=== PATIENT | male | born 1975 | race Caucasian/White ===

== ENCOUNTER 2020-02-24 13:28 | Outpatient (REF) | payer BC, SELFPAY | END 2020-02-24 13:29 | disposition home or self-care (01) | LOC: HO.LNP 13:28 | PROVIDERS: Visit Provider Hospitalist | DX: Z20.828 Contact with and (suspected) exposure to other viral communicable diseases (principal) | CPT/HCPCS: 87635 ==

== ENCOUNTER 2020-03-12 15:08 | Outpatient (REF) | payer OTHER, SELFPAY | END 2020-03-12 15:09 | disposition home or self-care (01) | LOC: HO.HMGCLDS 15:08 | PROVIDERS: PCP Nurse Practitioner Family; Visit Provider Internal Medicine | DX: Z20.828 Contact with and (suspected) exposure to other viral communicable diseases (principal) | CPT/HCPCS: 87635 ==

== ENCOUNTER 2021-03-21 08:38 | Outpatient (REF) | payer OTHER, SELFPAY ==
--- NOTE | ~2021-03-21 | MM_ITS ---
EXAMINATION: BONE DENSITOMETRY CLINICAL INDICATION: Unspecified asthma, uncomplicated. Male, age 46. COMPARISON: This is the patient's baseline examination. TECHNIQUE: Using a [employer] DXA System (software version: 13.1) manufactured by [employer], dual-energy x-ray absorptiometry was performed of the lumbar spine and left hip. The images are of good technical quality. Based on ISCD (International Society for Clinical Densitometry) standards of reporting, Z-scores instead of T-scores are reported in this male patient younger than age 50. Summary results are attached. FINDINGS: AP SPINE L1-L4: BMD 1.217 g/cm2, T-score 0.0, Z-score 0.2, Z-score within expected range for age. LEFT FEMUR, NECK: BMD 1.077 g/cm2, T-score 0.1, Z-score 0.7, Z-score within expected range for age. LEFT FEMUR, TOTAL: BMD 1.204 g/cm2, T-score 0.7, Z-score 1.1, Z-score within expected range for age. IDENTIFIED RISK FACTORS: Glucocorticoids (chronic). HISTORY OF FRACTURE: None listed. MEDICATIONS: Calcium supplements or multivitamin, vitamin D. MM/XR DEXA axial skeleton IMPRESSION: 1. DIAGNOSIS: Based on the lowest Z-score value of 0.2 in the lumbar spine, the patient's bone density is within the expected range for age. 2. 10-YEAR FRACTURE RISK PREDICTION, FRAX: Major osteoporotic fracture (clinical spine, forearm, hip or shoulder) 2.1%. Hip fracture 0.1%. 3. Treatment Recommendations: NOF guidelines recommend consideration for treatment in postmenopausal women and men age 50 and older presenting with the following: -A hip or vertebral (clinical or morphometric) fracture. -T-score less than or equal to -2.5 at the femoral neck or spine after appropriate evaluation to exclude secondary causes. -Low bone mass at the hip or spine and a 10-year fracture probability by FRAX of greater than or equal to 3% for hip fracture or greater than or equal to 20% for major osteoporotic fracture based on the [place] adapted WHO algorithm. 4. Other Recommendations: All treatment decisions require clinical judgment and consideration of individual patient factors, including patient preferences, comorbidities, previous drug use, risk factors not captured in the FRAX model (e.g. frailty, falls, vitamin D deficiency, increased bone turnover, interval significant decline in bone density) and possible under or overestimation of fracture risk by FRAX. FUTURE SCAN RECOMMENDATION: People with diagnosed cases of osteoporosis or at high risk for fracture should have regular bone mineral density tests. For patients eligible for Medicare, routine testing is allowed once every 2 years. The testing frequency can be increased to one year for patients who have rapidly progressing disease, those who are receiving or discontinuing medical therapy to restore bone mass, or have additional risk factors.
== END 2021-03-21 08:39 | disposition home or self-care (01) ==
LOC: HO.MAMMO 08:38
PROVIDERS: PCP Internal Medicine; Visit Provider Internal Medicine
DX: Z13.820 Encounter for screening for osteoporosis (principal); J45.909 Unspecified asthma, uncomplicated; Z79.52 Long term (current) use of systemic steroids
CPT/HCPCS: 77080

== ENCOUNTER 2022-07-18 11:12 | Day surgery (SDC) | payer OTHER, SELFPAY ==
--- NOTE | 2022-07-17 10:45 | HO.ANESPROP2 ---
Documented by User: Freida Gary NP 07/17/22 10:45 HPI - Anesthesia Eval Consult details Narrative: 47yo M for Upper Endoscopy and Colonoscopy [facility] Active Problems Active Problems: All Active Problems (Updated 07/17/22 @ 06:17 by Marsha Hollingsworth RN) Encounter for screening laboratory testing for COVID-19 virus (Acute) Perforated left tympanic membrane on examination (Acute) Neck pain (Acute) Past Medical History Medical History Arthritis Asthma Cholecystitis Disc disorder GERD (gastroesophageal reflux disease) Psoriasis Surgical History Surgical History Hx of cholecystectomy Hx of LASIK Social History Social History Patient Tobacco Use Status: Never used Tobacco Are you DNR?: No Advance Directives: No Advance Directives Information Provided: Yes Meds Allergies Allergy/AdvReac Type Severity Reaction Status Date / Time morphine [MORPHINE] Allergy Intermediate HIVES Verified 07/18/22 11:49 acetaminophen [Percocet] Allergy Mild Hives Verified 07/18/22 11:49 oxycodone [Percocet] Allergy Unknown Hives Verified 02/27/21 15:46 seafood Allergy Unknown Rash Verified 07/18/22 11:49 Penicillins Allergy Hives Verified 02/27/21 16:23 Home Medications Medication Instructions Recorded Confirmed Last Taken Type fluticasone 250 mcg-salmeterol 50 1 puff inhalation BID 07/17/22 07/17/22 07/17/22 History mcg/dose blistr powdr for inhalation (Advair Diskus) Exam Exam Date and Time: July 17, 2022 1045 Assessment and Plan Assessment Anesthesia Assessment: Chart Reviewed Documented by User: Kary Zapata MD 07/18/22 12:53 PMFSH Past Medical History Medical History Arthritis Asthma Cholecystitis Disc disorder GERD (gastroesophageal reflux disease) Psoriasis Functional capacity: independent ambulation Family History Family history of problems with anesthesia: No Surgical History Surgical History Hx of cholecystectomy Hx of LASIK History of Problems with Anesthesia: No Social History Social History Patient Tobacco Use Status: Never used Tobacco Are you DNR?: No Advance Directives: No Advance Directives Information Provided: Yes Meds Allergies Allergy/AdvReac Type Severity Reaction Status Date / Time morphine [MORPHINE] Allergy Intermediate HIVES Verified 07/18/22 11:49 acetaminophen [Percocet] Allergy Mild Hives Verified 07/18/22 11:49 oxycodone [Percocet] Allergy Unknown Hives Verified 02/27/21 15:46 seafood Allergy Unknown Rash Verified 07/18/22 11:49 Penicillins Allergy Hives Verified 02/27/21 16:23 Home Medications Medication Instructions Recorded Confirmed Last Taken Type fluticasone 250 mcg-salmeterol 50 1 puff inhalation BID 07/17/22 07/17/22 07/17/22 History mcg/dose blistr powdr for inhalation (Advair Diskus) Assessment and Plan Final Anesthetic Review Family History of Problems with Anesthesia: No History of Problems with Anesthesia: No ASA Class: II Final Preanesthetic Review: No Changes in Pt Med Stat, Meds/Allgs Chart Reviewed, Consent Obtained/Reviewed and Anes Risks/Benef Reviewed Patient Risk: Low Procedure Risk: Low Anesthetic Plan Anesthetic Plan: MAC: Disposition: Standard PACU
[2022-07-18 06:18] VITALS: BMI 29.2
[2022-07-18 11:36] VITALS: BP 131/83; PULSE 79; RESP 18; TEMP 36.3; O2SAT 98
[2022-07-18] MEDS: Lactated Ringers 1,000 ML 100 ML IVCONT (11:59)
--- NOTE | 2022-07-18 13:06 | MHC.SHP ---
Pre-Procedural Eval Section A Date of Service: 07/18/22 The patient is an INPATIENT: No Changes since office visit: No Cold of Flu in the past 2 weeks, No New Medical Problems, No Changes in Medication and No Patient answered all questions The History & Physical has been completed within 30 days and I have reviewed it.: Yes Section B Chief Complaint: screening,reflux Allergies: Allergies Allergy/AdvReac Type Severity Reaction Status Date / Time morphine [MORPHINE] Allergy Intermediate HIVES Verified 07/18/22 11:49 acetaminophen [Percocet] Allergy Mild Hives Verified 07/18/22 11:49 oxycodone [Percocet] Allergy Unknown Hives Verified 02/27/21 15:46 seafood Allergy Unknown Rash Verified 07/18/22 11:49 Penicillins Allergy Hives Verified 02/27/21 16:23 Plan I have reviewed the history and physical and performed a pertinent physical examination on my patient. No changes have occurred unless specified. Time Spent With Patient Time: Total time managing care of this patient today ____ minutes.
--- NOTE | 2022-07-18 13:47 | PM.OP ---
Brief Operative Note Date of Service: 07/18/22 Pre-op diagnosis: gerd screening Post-op diagnosis: same Procedure: egd colonoscopy Surgeon: Tab Marie Anesthesia: MAC Was an Pump Press Operator used for this Procedure?: No Estimated blood loss (mL): 2 Pathology: other Condition: stable Disposition: PACU
[2022-07-18 13:57] VITALS: BP 110/55; PULSE 68; RESP 16; TEMP 36.3; O2SAT 97
[2022-07-18 14:12] VITALS: BP 128/75; PULSE 72; RESP 16; TEMP 36.5; O2SAT 99
--- NOTE | 2022-07-19 01:15 | OP_ITS ---
SURGEON: Tab Marie MD INDICATIONS: 1. Gastroesophageal reflux disease. 2. Colon cancer screening. PREOPERATIVE DIAGNOSIS: POSTOPERATIVE DIAGNOSIS: PROCEDURE PERFORMED: ESTIMATED BLOOD LOSS: COMPLICATIONS: ANESTHESIA: Monitored anesthesia care. ASSISTANTS: SPECIMENS: DESCRIPTION OF PROCEDURE: The history and physical was performed. The procedure was performed on 07/18/2022. The risks and benefits of the procedure were explained to the patient. Informed consent was obtained. The patient was placed in the left lateral decubitus position. The Olympus video gastroscope was introduced into the esophagus, stomach, and duodenum. Examination was performed. The scope was removed and repositioned for colonoscopy. A digital rectal exam was performed and was found to be normal. The Olympus pediatric video colonoscope was introduced into the rectum and advanced to the cecum without difficulty. The cecum was identified by transillumination, palpation, and identification of the ileocecal valve. Examination was performed. The scope was removed. He tolerated both procedures well. Returned to the recovery area in stable condition. FINDINGS: Upper endoscopy: 1. Esophagus: The esophagus was normal. Biopsies were obtained from the EG junction. There was a small sliding hiatal hernia. 2. Stomach: The stomach showed no evidence of masses, ulcers, or polyps. Antral biopsies were obtained to rule out H pylori. 3. Duodenum: The bulb and 2nd portion were normal. Colonoscopy: The terminal ileum was normal. The visualized colonic mucosa was within normal limits without evidence of masses or ulcers. No polyps were identified. Retroflexed examination showed some hypertrophic anal papillae and small internal hemorrhoids. The quality of the prep was good. IMPRESSION: 1. Gastroesophageal reflux disease. 2. Normal colonoscopy. RECOMMENDATION: 1. Follow up the biopsy results. 2. Repeat colonoscopy is recommended in 10 years for average risk individuals. MD TIEN Uribe/MARTINA / [id number]
== END 2022-07-18 14:37 | disposition home or self-care (01) ==
PROVIDERS: PCP Internal Medicine; Visit Provider Internal Medicine Gastroenterology
PROC: (CPT 45378; principal; 2022-07-18 12:40)
DX: Z12.11 Encounter for screening for malignant neoplasm of colon (principal); K62.89 Other specified diseases of anus and rectum; K64.8 Other hemorrhoids; K21.9 Gastro-esophageal reflux disease without esophagitis; K44.9 Diaphragmatic hernia without obstruction or gangrene; J45.909 Unspecified asthma, uncomplicated; Z79.51 Long term (current) use of inhaled steroids; Z79.899 Other long term (current) drug therapy; Z88.0 Allergy status to penicillin; Z90.49 Acquired absence of other specified parts of digestive tract
CPT/HCPCS: 45378; 43239; 88305; 88342

== ENCOUNTER 2022-08-28 18:38 | Emergency (ER) | payer OTHER, SELFPAY ==
--- NOTE | ~2022-08-28 | XR_ITS ---
EXAMINATION: XR CHEST CLINICAL INFORMATION: Chest pain and shortness of breath. COMPARISON: None available. TECHNIQUE: Frontal view of the chest was obtained. FINDINGS: Normal appearance of the cardiomediastinal silhouette. No focal airspace opacity, pleural effusion or pneumothorax. Right upper quadrant surgical clips. No displaced osseous fractures. XR/XR chest 1V IMPRESSION: No acute cardiopulmonary findings.
--- NOTE | ~2022-08-28 | CT_ITS ---
EXAMINATION: CT HEAD WITHOUT CONTRAST CLINICAL INFORMATION: Dizziness. Blurred vision. COMPARISON: None. TECHNIQUE: Contiguous axial imaging was performed from the skull base to vertex without intravenous administration of contrast. Coronal and sagittal reformatted images are performed at the CT scanner. [This CT examination was performed using dose optimization techniques as appropriate, variously including the following: *Automated exposure control *Adjustment of mA and/or kV according to patient size (this includes techniques or standardized protocols for targeted exams where dose is matched to indication/reason for exam; i.e. extremities or head) *Use of iterative reconstruction technique] DLP: 580 mGy-cm. FINDINGS: There is no evidence of acute intracranial hemorrhage or territorial infarction. No abnormal mass-effect or midline shift is seen. Vickers to white matter differentiation is well preserved. No extra-axial fluid collections are identified. The ventricles are normal in size. There is no abnormal attenuation within the brain parenchyma. There is no osseous abnormality. Scattered mucosal thickening in the ethmoid air cells. Mastoids and middle ear cavities are normally aerated. CT/CT head/brain wo IV con IMPRESSION: No acute intracranial pathology.
[2022-08-28 18:49] VITALS: BP 130/72; PULSE 66; O2SAT 98
--- NOTE | 2022-08-28 18:51 | ECG_ITS ---
Test Reason : DIZZINESS Blood Pressure : / mmHG Vent. Rate : 061 BPM Atrial Rate : 061 BPM P-R Int : 144 ms QRS Dur : 086 ms QT Int : 394 ms P-R-T Axes : 042 018 015 degrees QTc Int : 396 ms Normal sinus rhythm Normal ECG When compared with ECG of 31-OCT-2017 19:35, No significant change was found Referred By: Cesar Ahmadi Electronically Signed By:GUERDA PACE MD
--- NOTE | 2022-08-28 18:56 | ED.DIZZY ---
HPI - Dizziness General Chief Complaint: Dizziness Stated Complaint: dizziness blurred vision Time Seen by Provider: 08/28/22 18:51 Source: patient and EMS Mode of arrival: EMS Limitations: no limitations History of Present Illness HPI Narrative: This is a 47-year-old male history of perforated left-sided ear drum, GERD, asthma presenting to the emergency department for complaints of blurred vision, difficulty focusing his vision and lightheadedness with a near syncopal episode happened just prior to his arrival. Patient tells me he was at the mall, buying a hat when he suddenly became lightheaded and he felt like he was going to pass out. He denies any preceding symptoms such as chest pain or shortness of breath however, he does state he has been feeling chest pain in the substernal region nonradiating as well as some intermittent shortness of breath over the past few days. However did not have any pain prior to this episode. Patient reports muscle aches and pains. Denies fevers, chills, nausea, vomiting, painful eye movements, headache, vision changes, head trauma, weakness. Patient is not a smoker. On arrival NIH stroke scale is 0. Related Data Home Medications Medication Instructions Recorded Confirmed fluticasone 250 mcg-salmeterol 50 1 puff inhalation BID 07/17/22 07/17/22 mcg/dose blistr powdr for inhalation (Advair Diskus) Previous Rx's Medication Instructions Recorded albuterol sulfate 90 mcg/actuation 2 inh inhalation Q4-6H PRN 08/28/22 breath activated powder inhaler shortness of breath or wheezing #1 ea Allergies Allergy/AdvReac Type Severity Reaction Status Date / Time morphine [MORPHINE] Allergy Intermediate HIVES Verified 07/18/22 11:49 acetaminophen [Percocet] Allergy Mild Hives Verified 07/18/22 11:49 oxycodone [Percocet] Allergy Unknown Hives Verified 02/27/21 15:46 seafood Allergy Unknown Rash Verified 07/18/22 11:49 Penicillins Allergy Hives Verified 02/27/21 16:23 Review of Systems Review of Systems: Constitutional : No Weight loss, No Fever, No Chills, No Fatigue, No Malaise ENT/Mouth : No sore throat, No Rhinorrhea Eyes: No Eye Pain, No Swelling, No Redness, + visual changes Cardiovascular : No Chest Pain, No SOB, No Dyspnea on Exertion, No Orthopnea, No Edema, No Palpitations Respiratory : No Cough, No Sputum, No Wheezing Gastrointestinal : No Nausea, No Vomiting, No Diarrhea, No Constipation, No abdominal Pain, No Hematochezia, No Melena Genitourinary : No Dysuria, No Urinary Frequency, No Hematuria, Musculoskeletal : No joint pain, No Myalgias, No Joint Swelling Skin : No Skin Lesions, No rash Neuro : No Weakness, No Numbness, + Dizziness, No Headache Psych : No Anxiety/Panic, No Depression All other systems reviewed and are negative Yes all other systems are reviewed and are negative [facility] Past Medical History Attestation statement: The following information was validated with the patient. Source: old records reviewed and nursing notes reviewed Medical History Arthritis Asthma Cholecystitis Disc disorder GERD (gastroesophageal reflux disease) Psoriasis Surgical History Hx of cholecystectomy Hx of LASIK Social History Social History Patient Tobacco Use Status: Never used Tobacco Smoked in Last 30 Days: No Use of substances other than those prescribed or required for medical reasons: No Advance Directives: No Advance Directives Information Provided: No Physical Exam Vital Signs: Vital Signs: Last Vital Signs Temp 98.3 F 08/28/22 22:33 Pulse 54 08/28/22 22:33 Resp 11 L 08/28/22 22:33 BP 129/83 08/28/22 22:33 Pulse Ox 98 08/28/22 22:33 O2 Del Method Room Air 08/28/22 22:33 BMI result Body Mass Index 29.2 vss Appearance: Alert.? Oriented X3.? No acute distress.? Head: Normocephalic, atraumatic, no step-offs or deformities Eyes: Pupils equal, round and reactive to light.? Extraocular movements intact, pain-free. ENT: Pharynx normal.? Neck: Normal inspection.? Neck supple.? CVS: Normal heart rate and rhythm.? Pulses normal.? Respiratory: No respiratory distress.? Breath sounds normal.? Abdomen: Soft and nontender.? Skin: Skin warm and dry.? Normal skin color.? Normal skin turgor.? Extremities: No lower extremity edema.? No calf ttp. 5/5 strength to bilateral upper and lower extremities Back: No midline tenderness, no C-spine tenderness, full range of motion, no CVA tenderness bilaterally Neuro: Oriented X 3.? No motor deficit.? No sensory deficit. CN 2-12 intact . Negative Romberg and pronator drift. Normal [id number], [id number], ambulating with steady tandem gait normal to coordination Course Reevaluation(s) Reevaluation #1: CBC within normal limits. Chemistry with no acute findings requiring intervention. Patient's plan of care within normal limits. Troponin negative, EKG nonischemic. EKG showing normal sinus rhythm ventricular rate of 61, MS normal, QRS normal, QT/QTC normal no ST elevations or inversions concerning for ischemia. D-dimer negative unlikely PE. Influenza, RSV and COVID negative. Chest x-ray with no acute findings. Orthostatic vital signs negative. Head CT pending. Time: 21:53 Reevaluation #2: CT of head with no acute intracranial pathology. X-ray no acute pulmonary findings. Patient's Neuro and cerebellar exam nonfocal. I do not suspect that this was a posterior stroke. Patient tells me his blurred vision has resolved he is no longer having any symptoms he tells me he is back to baseline. He tells me maybe he did not drink as much as he should of however he did have some water while he was at the mall. Patient feeling better. Educated patient on diagnosis and treatment plan, answered all question, patient verbalizes understanding. At this time patient will be discharged home, advised to return with new or worsening symptoms. Educated on worrisome signs and symptoms and when to return. At this time I feel comfortable discharge home. Time: 22:50 Medications Administered Discontinued Medications Generic Name Dose Route Start Last Admin Trade Name Freq PRN Reason Stop Dose Admin Sodium Chloride 1,000 mls @ 999 mls/hr 08/28/22 19:30 08/28/22 21:41 Ns IV 08/28/22 20:30 Infused .Q1H1M [facility] Infusion Medical Decision Making Medical Decision Making [facility] Narrative: 1859 47-year-old male presents with episode of near syncope with lightheadedness that occurred prior to arrival. Has been experiencing chest pain and shortness of breath over the past few days. Nonsmoker. Physical examination benign. Neuro nonfocal. Cerebellar intact. NIH stroke scale 0. Concerns for possible electrolyte abnormalities, dehydration, orthostatic hypotension. I do not suspect stroke, intracranial hemorrhage, posterior stroke. History and physical exam not consistent with ACS, PE, pneumothorax or pneumonia. History and physical exam not consistent with wet macular degeneration or acute closed angle glaucoma. Plan at this time labs, imaging, urine, head CT, fluids, of a static vital signs, point of care. Differential Diagnosis Differential Diagnoses: The differential diagnosis associated with the presentation includes Concerns for possible electrolyte abnormalities, dehydration, orthostatic hypotension. I do not suspect stroke, intracranial hemorrhage, posterior stroke. History and physical exam not consistent with ACS, PE, pneumothorax or pneumonia. History and physical exam not consistent with wet macular degeneration or acute closed angle glaucoma. Admission/Observation Consideration of admission/observation: Escalation of care including admission/observation considered Lab Data MDM Lab Attestation statement: I reviewed the patient's lab results. 08/28/22 19:15 08/28/22 19:15 Labs: Lab Results 08/28/22 08/28/22 08/28/22 Range/Units 19:07 19:15 19:15 WBC 7.7 (4.8-10.8) X10*3/uL RBC 5.37 (4.60-5.80) X10*6/uL Hgb 14.3 (14.0-18.0) g/dl Hct 44.0 (42.0-52.0) % MCV 81.9 (80.0-98.0) fL MCH 26.6 L (27.0-33.0) pg MCHC 32.5 (31.0-36.0) g/dl RDW 12.3 (11.0-16.0) % Plt Count 224 (160-400) X10*3/uL MPV 12.0 (9.4-12.4) fL Immature Gran % (Auto) 0.3 (0.0-0.4) % Neut % (Auto) 53.7 (45-73) % Lymph % (Auto) 34.8 (20-40) % Cecil % (Auto) 6.7 (2-11) % Eos % (Auto) 3.9 (0-4) % Baso % (Auto) 0.6 (0-2) % Lymph # (Auto) 2.7 (1.2-4.9) X10*3/uL Cecil # (Auto) 0.5 (0.1-1.2) X10*3/uL Eos # (Auto) 0.3 (0.0-0.4) X10*3/uL Baso # (Auto) 0.1 (0.0-0.2) X10*3/uL Abs Immat Gran (auto) 0.02 (0.00-0.03) X10*3/uL Absolute Neuts (auto) 4.1 (2.0-8.3) x10*3/uL Absolute Nucleated RBC 0.000 (0.0-0.012) X10*3/uL Nucleated RBC % (auto) 0.0 (0.0-0.2) /100WBC PT 11.7 (10.0-13.1) SEC INR 1.0 (0.9-1.1) D-Dimer High Sensitivty NG/ML Sodium (135-145) mmol/L Potassium (3.3-5.1) mmol/L Chloride (96-108) mmol/L Carbon Dioxide (22-29) mmol/L Anion Gap (12-20) BUN (9-16) mg/dL Creatinine (0.5-1.4) mg/dL Estim Creat Clear Calc Estimated GFR POC Glucose 98 (60-115) mg/dL Random Glucose (60-115) mg/dL Calcium (8.4-10.2) mg/dL Magnesium (1.6-2.6) mg/dL Total Bilirubin (0.0-1.0) mg/dL AST (5-37) U/L ALT (0-40) U/L Alkaline Phosphatase (39-117) U/L Troponin I High Sens (<3.5-35.0) ng/L Total Protein (6.5-8.0) g/dL Albumin (3.5-5.0) g/dL Influenza Type A (PCR) (Negative) Influenza Type B (PCR) (Negative) RSV RNA Qual (PCR) (Negative) SARS-CoV-2 RNA (RT-PCR) (Negative) 08/28/22 08/28/22 08/28/22 Range/Units 19:15 19:15 19:15 WBC (4.8-10.8) X10*3/uL RBC (4.60-5.80) X10*6/uL Hgb (14.0-18.0) g/dl Hct (42.0-52.0) % MCV (80.0-98.0) fL MCH (27.0-33.0) pg MCHC (31.0-36.0) g/dl RDW (11.0-16.0) % Plt Count (160-400) X10*3/uL MPV (9.4-12.4) fL Immature Gran % (Auto) (0.0-0.4) % Neut % (Auto) (45-73) % Lymph % (Auto) (20-40) % Cecil % (Auto) (2-11) % Eos % (Auto) (0-4) % Baso % (Auto) (0-2) % Lymph # (Auto) (1.2-4.9) X10*3/uL Cecil # (Auto) (0.1-1.2) X10*3/uL Eos # (Auto) (0.0-0.4) X10*3/uL Baso # (Auto) (0.0-0.2) X10*3/uL Abs Immat Gran (auto) (0.00-0.03) X10*3/uL Absolute Neuts (auto) (2.0-8.3) x10*3/uL Absolute Nucleated RBC (0.0-0.012) X10*3/uL Nucleated RBC % (auto) (0.0-0.2) /100WBC PT (10.0-13.1) SEC INR (0.9-1.1) D-Dimer High Sensitivty < 150 NG/ML Sodium 143 (135-145) mmol/L Potassium 3.9 (3.3-5.1) mmol/L Chloride 110 H (96-108) mmol/L Carbon Dioxide 24 (22-29) mmol/L Anion Gap 13 (12-20) BUN 11 (9-16) mg/dL Creatinine 1.04 (0.5-1.4) mg/dL Estim Creat Clear Calc 75.9 Estimated GFR > 60 POC Glucose (60-115) mg/dL Random Glucose 94 (60-115) mg/dL Calcium 9.5 (8.4-10.2) mg/dL Magnesium 2.2 (1.6-2.6) mg/dL Total Bilirubin 0.5 (0.0-1.0) mg/dL AST 29 (5-37) U/L ALT 43 H (0-40) U/L Alkaline Phosphatase 102 (39-117) U/L Troponin I High Sens 3.0 (<3.5-35.0) ng/L Total Protein 7.2 (6.5-8.0) g/dL Albumin 4.4 (3.5-5.0) g/dL Influenza Type A (PCR) (Negative) Influenza Type B (PCR) (Negative) RSV RNA Qual (PCR) (Negative) SARS-CoV-2 RNA (RT-PCR) (Negative) 08/28/22 08/28/22 Range/Units 19:15 22:04 WBC (4.8-10.8) X10*3/uL RBC (4.60-5.80) X10*6/uL Hgb (14.0-18.0) g/dl Hct (42.0-52.0) % MCV (80.0-98.0) fL MCH (27.0-33.0) pg MCHC (31.0-36.0) g/dl RDW (11.0-16.0) % Plt Count (160-400) X10*3/uL MPV (9.4-12.4) fL Immature Gran % (Auto) (0.0-0.4) % Neut % (Auto) (45-73) % Lymph % (Auto) (20-40) % Cecil % (Auto) (2-11) % Eos % (Auto) (0-4) % Baso % (Auto) (0-2) % Lymph # (Auto) (1.2-4.9) X10*3/uL Cecil # (Auto) (0.1-1.2) X10*3/uL Eos # (Auto) (0.0-0.4) X10*3/uL Baso # (Auto) (0.0-0.2) X10*3/uL Abs Immat Gran (auto) (0.00-0.03) X10*3/uL Absolute Neuts (auto) (2.0-8.3) x10*3/uL Absolute Nucleated RBC (0.0-0.012) X10*3/uL Nucleated RBC % (auto) (0.0-0.2) /100WBC PT (10.0-13.1) SEC INR (0.9-1.1) D-Dimer High Sensitivty NG/ML Sodium (135-145) mmol/L Potassium (3.3-5.1) mmol/L Chloride (96-108) mmol/L Carbon Dioxide (22-29) mmol/L Anion Gap (12-20) BUN (9-16) mg/dL Creatinine (0.5-1.4) mg/dL Estim Creat Clear Calc Estimated GFR POC Glucose (60-115) mg/dL Random Glucose (60-115) mg/dL Calcium (8.4-10.2) mg/dL Magnesium (1.6-2.6) mg/dL Total Bilirubin (0.0-1.0) mg/dL AST (5-37) U/L ALT (0-40) U/L Alkaline Phosphatase (39-117) U/L Troponin I High Sens < 2.7 (<3.5-35.0) ng/L Total Protein (6.5-8.0) g/dL Albumin (3.5-5.0) g/dL Influenza Type A (PCR) NEGATIVE (Negative) Influenza Type B (PCR) NEGATIVE (Negative) RSV RNA Qual (PCR) NEGATIVE (Negative) SARS-CoV-2 RNA (RT-PCR) NEGATIVE (Negative) Independent Interpretation I performed an independent interpretation of an: EKG (Ventricular rate of 61, MS normal, QRS normal, QT/QTC normal. EKG with normal sinus rhythm no ST elevations or inversions concerning for ischemia.), Plain X-Ray and CT Scan Radiology Impression Discussion of test interpretation with radiology: I have reviewed the radiologist's reading. External Record Review External record reviewed: Inpatient record, Office record, Outpatient record, Prior outpatient labs, Prior outpatient radiology, Primary care record and Outside ED record Core Measures AMI core measures followed: Yes Measure exclusions: not indicated Critical Care Time Critical Care Time Critical Care Time: No Discharge Plan Discharge Clinical Impression: Near syncope Patient Disposition: Home, Self-Care Instructions: Near Syncope (ED) Additional Instructions: Take your medications as prescribed. If you were prescribed antibiotics today, it is important that you take your medication to their entirety, do not skip any doses, do not finish them early. Follow-up with your primary care provider this week. Return to the emergency department with new or worsening symptoms. Such as fevers, chills, chest pain, shortness of breath, nausea, vomiting, dizziness, headache, vision changes, lethargy In case of emergency call 911 Drink plenty of fluids. Your labs and cardiac enzymes were reassuring. Imaging results below. XR/XR chest 1V IMPRESSION: No acute cardiopulmonary findings. ? CT/CT head/brain wo IV con IMPRESSION: No acute intracranial pathology. ? Prescriptions: New albuterol sulfate 90 mcg/actuation aerosol powdr breath activated 2 inh inhalation Q4-6H PRN (Reason: shortness of breath or wheezing) Qty: 1 0RF No Action fluticasone propion-salmeterol [Advair Diskus] 250-50 mcg/dose blister with device 1 puff inhalation BID Referrals: Physician,Unknown J [Primary Care Provider] - 2 days Stand Alone Forms: Work/School Release
[2022-08-28 19:23] LABS: MANUAL DIFF FLAG NO
[2022-08-28 19:24] VITALS: BP 126/74; PULSE 63; RESP 16; TEMP 36.9; O2SAT 98; BMI 29.2
[2022-08-28 19:24] LABS: Glucose, Whole Blood 98 mg/dL (60-115)
[2022-08-28 19:28] LABS: Basophils Absolute Auto 0.1 X10*3/uL (0.0-0.2); Basophils Percent Auto 0.6 % (0-2); Eosinophils Absolute Auto 0.3 X10*3/uL (0.0-0.4); Eosinophils Percent Auto 3.9 % (0-4); Hemoglobin 14.3 g/dl (14.0-18.0); Imm Gran Abs Auto 0.02 X10*3/uL (0.00-0.03); Imm Gran Pct Auto 0.3 % (0.0-0.4); Lymphocytes Absolute Auto 2.7 X10*3/uL (1.2-4.9); Lymphocytes Percent Auto 34.8 % (20-40); Mean Corpuscular HGB Conc 32.5 g/dl (31.0-36.0); Mean Corpuscular Hemoglobin 26.6 pg (27.0-33.0); Mean Corpuscular Volume 81.9 fL (80.0-98.0); Monocytes Absolute Auto 0.5 X10*3/uL (0.1-1.2); Monocytes Percent Auto 6.7 % (2-11); Neutrophils Absolute Auto 4.1 x10*3/uL (2.0-8.3); Neutrophils Percent Auto 53.7 % (45-73); Platelet Count 224 X10*3/uL (160-400); Red Blood Count 5.37 X10*6/uL (4.60-5.80); Red Cell Distribution Width 12.3 % (11.0-16.0); White Blood Count 7.7 X10*3/uL (4.8-10.8)
[2022-08-28 19:30] LABS: Prothrombin Time 11.7 SEC (10.0-13.1)
[2022-08-28 19:45] LABS: Alanine Aminotransferase 43 U/L (0-40); Albumin Level 4.4 g/dL (3.5-5.0); Alkaline Phosphatase 102 U/L (39-117); Anion Gap 13 (12-20); Aspartate Amino Transferase 29 U/L (5-37); Bilirubin Total 0.5 mg/dL (0.0-1.0); Blood Urea Nitrogen 11 mg/dL (9-16); Calcium 9.5 mg/dL (8.4-10.2); Carbon Dioxide 24 mmol/L (22-29); Chloride 110 mmol/L (96-108); Creatinine Clr Calc Pharmacy 75.9; Estimated Glomerular Filt Rate > 60; Glucose Random 94 mg/dL (60-115); Magnesium 2.2 mg/dL (1.6-2.6); Potassium 3.9 mmol/L (3.3-5.1); Sodium 143 mmol/L (135-145); Total Protein 7.2 g/dL (6.5-8.0)
[2022-08-28 19:50] LABS: D Dimer High Sensitivity < 150 NG/ML
[2022-08-28 20:05] LABS: Influenza A PCR NEGATIVE (Negative); Influenza B PCR NEGATIVE (Negative); Resp Syncy Virus RNA Qual PCR NEGATIVE (Negative); SARS COV2 PCR INHOUSE NEGATIVE (Negative)
[2022-08-28 20:08] VITALS: BP 113/72; BP 125/86; PULSE 59
[2022-08-28 20:09] VITALS: BP 132/88; PULSE 67
[2022-08-28] MEDS: 0.9 % Sodium Chloride 1,000 ML 999 ML IV (20:12)
--- NOTE | 2022-08-28 22:05 | PC.NURSE ---
bed side swallow eval performed. ne delayed effort, no difficulty swallowing, no coughing/ choking. pt PASSED.
[2022-08-28 22:33] VITALS: BP 129/83; PULSE 54; RESP 11; TEMP 36.8; O2SAT 98
[2022-08-28 22:40] LABS: Troponin-I High Sensitivity < 2.7 ng/L (<3.5-35.0)
--- NOTE | 2022-08-28 23:06 | PC.NURSE ---
iv removed at time of discharge. pt ambulatory at discharge. pt's to pick pt up from waiting room. pt provided with discharge packet and work note. pt verbalized understanding of discharge plan
== END 2022-08-28 23:14 | disposition home or self-care (01) ==
PROVIDERS: Physician Assistant; Emergency Provider Emergency Medicine
DX: R55 Syncope and collapse (principal); R42 Dizziness and giddiness; R51.9 Headache, unspecified; M54.2 Cervicalgia; Z20.822 Contact with and (suspected) exposure to COVID-19; Z20.828 Contact with and (suspected) exposure to other viral communicable diseases; Z79.899 Other long term (current) drug therapy
CPT/HCPCS: 0241U; 36415; 70450; 71045; 80053; 82947; 83735; 84484; 85025; 85379; 85610; 93005; 96360; 99284; 99285

== ENCOUNTER 2023-02-24 08:40 | Day surgery (SDC) | payer OTHER, SELFPAY ==
--- NOTE | 2023-02-20 11:19 | HO.ANESPROP2 ---
Documented by User: Freida Gary NP 02/20/23 11:20 HPI - Anesthesia Eval Consult details Narrative: 47yo M for Upper Endoscopy PMFSH Active Problems Active Problems: All Active Problems (Updated 02/20/23 @ 11:06 by Kathya Ken RN) Neck pain (Acute) Perforated left tympanic membrane on examination (Acute) Encounter for screening laboratory testing for COVID-19 virus (Acute) Past Medical History Medical History (Updated 02/20/23 @ 11:06 by Kathya Ken RN) Gastric intestinal metaplasia Cholecystitis Psoriasis Disc disorder Arthritis Asthma GERD (gastroesophageal reflux disease) Family History Family history of problems with anesthesia: No Surgical History Surgical History (Updated 02/20/23 @ 11:05 by Kathya Ken RN) History of colonoscopy History of endoscopy H/O discectomy Hx of cholecystectomy Hx of LASIK History of Problems with Anesthesia: No Social History Social History Patient Tobacco Use Status: Never used Tobacco Are you DNR?: No Advance Directives: No Advance Directives Information Provided: Yes Recently lost weight without trying: No Nutrition Risks: No Nutritional Risk Meds Allergies Allergy/AdvReac Type Severity Reaction Status Date / Time morphine [MORPHINE] Allergy Intermediate HIVES Verified 07/18/22 11:49 acetaminophen [Percocet] Allergy Mild Hives Verified 07/18/22 11:49 oxycodone [Percocet] Allergy Unknown Hives Verified 02/27/21 15:46 seafood Allergy Unknown Rash Verified 07/18/22 11:49 Penicillins Allergy Hives Verified 02/27/21 16:23 Home Medications Medication Instructions Recorded Confirmed Last Taken Type fluticasone 250 mcg-salmeterol 50 1 puff inhalation BID 07/17/22 07/17/22 07/17/22 History mcg/dose blistr powdr for inhalation (Advair Diskus) Exam Exam Date and Time: February 20, 2023 1119 Pertinent Lab Results Pertinent Lab Results: Laboratory Tests 08/28/22 19:15 WBC 7.7 Hgb 14.3 Hct 44.0 Plt Count 224 Sodium 143 Potassium 3.9 Chloride 110 H Carbon Dioxide 24 BUN 11 Creatinine 1.04 Narrative Narrative: EKG 08/2022 Vent. Rate : 061 BPM Atrial Rate : 061 BPM P-R Int : 144 ms QRS Dur : 086 ms QT Int : 394 ms P-R-T Axes : 042 018 015 degrees QTc Int : 396 ms Normal sinus rhythm Normal ECG When compared with ECG of 31-OCT-2017 19:35, No significant change was found Assessment and Plan Assessment Anesthesia Assessment: Chart Reviewed Final Anesthetic Review Family History of Problems with Anesthesia: No History of Problems with Anesthesia: No Documented by User: Aidan Schuler MD 02/24/23 10:25 [facility] Past Medical History Medical History (Updated 02/20/23 @ 11:06 by Kathya Ken RN) Gastric intestinal metaplasia Cholecystitis Psoriasis Disc disorder Arthritis Asthma GERD (gastroesophageal reflux disease) Surgical History Surgical History (Updated 02/20/23 @ 11:05 by Kathya Ken RN) History of colonoscopy History of endoscopy H/O discectomy Hx of cholecystectomy Hx of LASIK Social History Social History Patient Tobacco Use Status: Never used Tobacco Are you DNR?: No Advance Directives: No Advance Directives Information Provided: Yes Recently lost weight without trying: No Nutrition Risks: No Nutritional Risk Meds Allergies Allergy/AdvReac Type Severity Reaction Status Date / Time morphine [MORPHINE] Allergy Intermediate HIVES Verified 07/18/22 11:49 acetaminophen [Percocet] Allergy Mild Hives Verified 07/18/22 11:49 oxycodone [Percocet] Allergy Unknown Hives Verified 02/27/21 15:46 seafood Allergy Unknown Rash Verified 07/18/22 11:49 Penicillins Allergy Hives Verified 02/27/21 16:23 Home Medications Medication Instructions Recorded Confirmed Last Taken Type fluticasone 250 mcg-salmeterol 50 1 puff inhalation BID 07/17/22 07/17/22 07/17/22 History mcg/dose blistr powdr for inhalation (Advair Diskus) Exam Airway Mallampati Class: II TM Dist: >3cm Neck ROM: Full Loose/Missing/Broken Teeth: No Assessment and Plan Assessment Anesthesia Assessment: Anesthesia Plan Discussed Final Anesthetic Review NPO: Yes ASA Class: II Final Preanesthetic Review: No Changes in Pt Med Stat, Meds/Allgs Chart Reviewed, Consent Obtained/Reviewed and Anes Risks/Benef Reviewed Patient Risk: Low Procedure Risk: Low Anesthetic Plan Anesthetic Plan: MAC: Disposition: Standard PACU
[2023-02-24] VITALS (7 sets, daily range): BP systolic 106–119; BP diastolic 51–77; PULSE 52–83; RESP 16–20; TEMP 36.1–36.6; O2SAT 88–99; BMI 30.2
--- NOTE | 2023-02-24 10:44 | PM.OP ---
Brief Operative Note Date of Service: 02/24/23 Pre-op diagnosis: see H&P no chnges Post-op diagnosis: same Surgeon: Tab Marie MD Anesthesia: MAC Was an Siding Coreboard Inspector used for this Procedure?: No Estimated blood loss (mL): 2 Pathology: other Condition: stable Disposition: PACU
== END 2023-02-24 12:31 | disposition home or self-care (01) ==
PROVIDERS: PCP Internal Medicine; Visit Provider Internal Medicine Gastroenterology
PROC: 0DJ08ZZ Inspection of Upper Intestinal Tract, Via Natural or Artificial Opening Endoscopic (ICD-10-PCS; CPT 43235; principal; 2023-02-24 10:10)
DX: K31.A0 Gastric intestinal metaplasia, unspecified (principal); K21.9 Gastro-esophageal reflux disease without esophagitis; J45.909 Unspecified asthma, uncomplicated; Z79.51 Long term (current) use of inhaled steroids; Z79.899 Other long term (current) drug therapy; Z88.5 Allergy status to narcotic agent; Z90.49 Acquired absence of other specified parts of digestive tract; Z98.890 Other specified postprocedural states
CPT/HCPCS: 43239; 88305; 88342; 94640

== ENCOUNTER 2023-02-24 16:11 | Inpatient (IN) | payer OTHER, SELFPAY ==
[2023-02-24] VITALS (10 sets, daily range): BP systolic 117–136; BP diastolic 68–80; PULSE 72–102; RESP 17–22; TEMP 36.7–37.7; O2SAT 95–99; BMI 30.4
--- NOTE | 2023-02-24 17:26 | ED.GENADULT ---
HPI - General Adult General Chief complaint: General Medical Stated complaint: Chest pain Time Seen by Provider: 02/24/23 21:05 Source: patient Mode of arrival: ambulatory Limitations: no limitations History of Present Illness HPI narrative: 47-year-old male history of asthma and GERD s/p upper endoscopy today patient has been having chest discomfort, coughing, subjective fever and chills with generalized weakness and not feeling well, patient is a nonsmoker, no sick contacts, no recent travel but no lower extremity swelling or tenderness. Patient also been complaining of left ear pain for 1 day patient is prone to ear infection and had a history of TM perforation denies any trauma or blood coming out of the left ear. Related Data Home Medications Medication Instructions Recorded Confirmed fluticasone 250 mcg-salmeterol 50 1 puff inhalation BID 07/17/22 07/17/22 mcg/dose blistr powdr for inhalation (Advair Diskus) Previous Rx's Medication Instructions Recorded albuterol sulfate 90 mcg/actuation 2 inh inhalation Q4-6H PRN 08/28/22 breath activated powder inhaler shortness of breath or wheezing #1 ea Allergies Allergy/AdvReac Type Severity Reaction Status Date / Time morphine [MORPHINE] Allergy Intermediate HIVES Verified 07/18/22 11:49 acetaminophen [Percocet] Allergy Mild Hives Verified 07/18/22 11:49 oxycodone [Percocet] Allergy Unknown Hives Verified 02/27/21 15:46 seafood Allergy Unknown Rash Verified 07/18/22 11:49 Penicillins Allergy Hives Verified 02/27/21 16:23 Review of Systems Review of Systems: all other systems are reviewed and are negative Constitutional: Reports as per HPI and Reports no additional constitutional complaints Eyes: Reports as per HPI and Reports no additional eye complaints Reports system reviewed and no additional complaints, except as documented Cardiovascular: Reports as per HPI and Reports no additional cardiovascular complaints Respiratory: Reports as per HPI and Reports no additional respiratory complaints Gastrointestinal: Reports as per HPI and Reports no additional gastrointestinal complaints Genitourinary: Reports no additional female genitourinary complaints Musculoskeletal: Reports no additional musculoskeletal complaints Skin/Breast: Reports system reviewed and no additional complaints, except as docu Psychiatric: Reports no additional psychiatric complaints Endocrine: Reports no additional endocrine complaints Hematologic/Lymphatic: Reports no additional hematologic/lymphatic complaints Allergic/Immunologic: Reports no additional allergic/immunologic complaints Reports system reviewed and no additional complaints, except as documented and Reports Abnormal speech present [facility] Past Medical History Medical History Gastric intestinal metaplasia Cholecystitis Psoriasis Disc disorder Arthritis Asthma GERD (gastroesophageal reflux disease) Surgical History History of colonoscopy History of endoscopy H/O discectomy Hx of cholecystectomy Hx of LASIK Social History Social History Patient Tobacco Use Status: Never used Tobacco Physical Exam ED Vital Signs: Vital Signs - 24 hr 02/24/23 17:22 02/24/23 20:59 Temperature 99.7 F 99.8 F Pulse Rate 97 79 Respiratory Rate 19 18 Blood Pressure 121/68 136/68 Pulse Oximetry 95 98 Oxygen Delivery Method Room Air Room Air BMI result Body Mass Index 30.4 Vital signs have been reviewed and appear to be correct. Blood pressure elevated. Heart rate normal. Respiratory rate normal. Temperature normal. Oxygen saturation normal. Appearance: Alert. Oriented X3. mild acute distress. Head: Normal external exam. Normocephalic. Atraumatic. No Campos signs noted. No raccoon eyes noted Eyes: PERRLA. EOMI. Conjunctiva and sclera normal. Eyelids normal. ENT: TM's Normal. Pharynx normal. Uvula midline. Moist mucous membranes. No trismus noted. No drooling noted. No muffled voice noted. Neck: Normal inspection. Neck supple. FROM. No adenopathy. Thyroid Normal. No meningeal signs. No neck mass noted. CVS: Normal heart rate and rhythm. Heart sound normal. No murmurs noted. Pulses normal throughout. Respiratory: mild respiratory distress. Painless inspiration. Breath sounds normal. diffuse bilateral expiratory wheezing with decreased breathing sound bilaterally and prolonged expiration, Chest nontender. No accessory muscle usage noted or decreased air movement noted. Abdomen: Soft and nontender. Bowel sounds normal in all 4 quadrants. No distention noted. No organomegaly noted. No visible injury noted. Back: No CVA tenderness. Full range of motion noted. Skin: Skin warm and dry. Normal skin color. Normal skin turgor. No rashes/lesions/lacerations noted. Extremities: No lower extremity edema. Extremities exhibit normal range of motion. Extremities nontender. Neuro: Oriented X 3. Cranial nerve exam: II-XII are grossly intact No motor deficit. No sensory deficit. Reflexes normal. Course Course Course Narrative: This is an RME: Additional HPI, ROS, PE not included below will be deferred to primary provider. This is a 1-gfef-lbn-male, with a hx of asthma, GERD, C4C5 disc removed by Dr. Wheeler, presenting to the ER with complaints of chest pain, dizziness, and headaches since today. pt also endorsing left ear - hx of l TM perforation. He had an endoscopy performed today for GERD. Went home and started to develop intermittent chest pain, shortness of breath. Plan: Labs, EKG, Reevaluation(s) Reevaluation #1: 47-year-old male came in with cough and subjective fever patient clinical exam and x-ray is confirming the diagnosis of pneumonia and patient meet criteria for SARs, sepsis protocol was activated on the patient will check culture, lactic acid start antibiotic. Patient also is showing left otitis media. Patient on exam with mild wheezing and mild respiratory distress will continue with bronchodilator, Solu-Medrol. Time: 21:20 Medical Decision Making Differential Diagnosis Differential Diagnoses: The differential diagnosis associated with the presentation includes ( Pneumonia, otitis media, viral upper respiratory infection, sepsis.) Admission/Observation Consideration of admission/observation: Escalation of care including admission/observation considered Consult Healthcare Provider Management of the patient was discussed with: Hospitalist ( Dr. jurado) Lab Data MDM Lab Attestation statement: I reviewed the patient's lab results. 02/24/23 17:41 02/24/23 17:41 Labs: Lab Results 02/24/23 Range/Units 17:41 WBC 14.8 H (4.8-10.8) X10*3/uL RBC 5.55 (4.60-5.80) X10*6/uL Hgb 15.1 (14.0-18.0) g/dl Hct 45.5 (42.0-52.0) % MCV 82.0 (80.0-98.0) fL MCH 27.2 (27.0-33.0) pg MCHC 33.2 (31.0-36.0) g/dl RDW 12.1 (11.0-16.0) % Plt Count 218 (160-400) X10*3/uL MPV 11.9 (9.4-12.4) fL Immature Gran % (Auto) 0.4 (0.0-0.4) % Neut % (Auto) 88.2 H (45-73) % Lymph % (Auto) 6.9 L (20-40) % [place] % (Auto) 3.8 (2-11) % Eos % (Auto) 0.5 (0-4) % Baso % (Auto) 0.2 (0-2) % Lymph # (Auto) 1.0 L (1.2-4.9) X10*3/uL [place] # (Auto) 0.6 (0.1-1.2) X10*3/uL Eos # (Auto) 0.1 (0.0-0.4) X10*3/uL Baso # (Auto) 0.0 (0.0-0.2) X10*3/uL Abs Immat Gran (auto) 0.06 H (0.00-0.03) X10*3/uL Absolute Neuts (auto) 13.1 H (2.0-8.3) x10*3/uL Absolute Nucleated RBC 0.000 (0.0-0.012) X10*3/uL Nucleated RBC % (auto) 0.0 (0.0-0.2) /100WBC Sodium 140 (135-145) mmol/L Potassium 4.3 (3.3-5.1) mmol/L Chloride 105 (96-108) mmol/L Carbon Dioxide 24 (22-29) mmol/L Anion Gap 15 (12-20) BUN 13 (9-16) mg/dL Creatinine 1.02 (0.5-1.4) mg/dL Estim Creat Clear Calc 78.7 Estimated GFR > 60 Random Glucose 120 H (60-115) mg/dL Calcium 10.0 (8.4-10.2) mg/dL Total Bilirubin 0.8 (0.0-1.0) mg/dL Direct Bilirubin 0.3 (0.0-0.5) mg/dL AST 27 (5-37) U/L ALT 26 (0-40) U/L Alkaline Phosphatase 80 (39-117) U/L Troponin I High Sens < 2.7 (<3.5-35.0) ng/L Total Protein 7.8 (6.5-8.0) g/dL Albumin 4.4 (3.5-5.0) g/dL Independent Interpretation I performed an independent interpretation of an: Plain X-Ray (Patchy infiltrative change within the lingula and left base. Consider pneumonia. ) Radiology Impression Discussion of test interpretation with radiology: I have reviewed the radiologist's reading. Chronic Conditions Patient?s care impacted by: Other ( pneumonia) Discharge Plan Discharge Clinical Impression: Sepsis, Asthma exacerbation Pneumonia Qualifiers: Aspiration pneumonia type: unspecified Laterality: left Lung location: unspecified part of lung Otitis media Qualifiers: Otitis media type: serous Chronicity: acute Laterality: left Recurrence: non-recurrent Qualified Code(s): H65.02 - Acute serous otitis media, left ear Patient Disposition: Admitted As Inpatient Prescriptions: No Action fluticasone propion-salmeterol [Advair Diskus] 250-50 mcg/dose blister with device 1 puff inhalation BID albuterol sulfate 90 mcg/actuation aerosol powdr breath activated 2 inh inhalation Q4-6H PRN (Reason: shortness of breath or wheezing) Qty: 1 0RF
--- NOTE | 2023-02-24 21:52 | PM.IMHP ---
History of Present Illness Date of Service: 02/24/23 Chief Complaint: Fever and chills This is a 47-year-old male with pertinent history of asthma not on home oxygen, gastroesophageal reflux disease who presents to the emergency department for evaluation of chills, fever and chest discomfort. Patient states he had an upper endoscopy today for evaluation of GERD. After the endoscopy, patient states he has been having chills, intermittent productive cough and pleuritic chest discomfort. No symptoms prior to endoscopy. Also has been having associated subjective fever and generalized weakness. Does have history of asthma and states since the cough started, he has been having dyspnea which is worse with ambulation and wheezing. Denies chest discomfort, palpitations, abdominal pain, changes in urinary or bowel habits. In the emergency department, imaging concerning for pneumonia and patient was found to be septic. Review of Systems Constitutional: Constitutional: Reports chills, Reports fatigue, Reports fever(s), Reports lethargy and Reports malaise Cardiovascular: Cardiovascular: Reports dyspnea on exertion Respiratory: Respiratory: Reports cough, Reports pain on inspiration, Reports pain with cough, Reports dyspnea on exertion and Reports wheezing Gastrointestinal: Gastrointestinal: Reports no additional gastrointestinal complaints Genitourinary: Genitourinary: Reports no additional male genitourinary complaints Endocrine: Endocrine: Reports fatigue Allergic/Immunologic: Allergic/Immunologic: Reports wheezing [facility] Medical History Gastric intestinal metaplasia Cholecystitis Psoriasis Disc disorder Arthritis Asthma GERD (gastroesophageal reflux disease) Pertinent family history: No family history of early CAD Surgical History History of colonoscopy History of endoscopy H/O discectomy Hx of cholecystectomy Hx of LASIK Social History Patient Tobacco Use Status: Never used Tobacco Advance Directives: No Advance Directives Information Provided: No Meds Allergies Allergy/AdvReac Type Severity Reaction Status Date / Time morphine [MORPHINE] Allergy Intermediate HIVES Verified 07/18/22 11:49 acetaminophen [Percocet] Allergy Mild Hives Verified 07/18/22 11:49 oxycodone [Percocet] Allergy Unknown Hives Verified 02/27/21 15:46 seafood Allergy Unknown Rash Verified 07/18/22 11:49 Penicillins Allergy Hives Verified 02/27/21 16:23 Active Medications: Current Medications Sodium Chloride (Ns) 1,000 mls @ 999 mls/hr IV .Q1H1M ONE Stop: 02/24/23 22:14 Last Admin: 02/24/23 21:23 Dose: 999 mls/hr Azithromycin 500 mg/ Sodium (Chloride) 250 mls @ 125 mls/hr IV ONCE ONE Stop: 02/24/23 23:13 Home Medications Medication Instructions Recorded Confirmed Last Taken Type fluticasone 250 mcg-salmeterol 50 1 puff inhalation BID 07/17/22 07/17/22 07/17/22 History mcg/dose blistr powdr for inhalation (Advair Diskus) Physical Exam Vital Signs and Narrative: Vital Signs: Last Vital Signs Temp 98.8 F 02/24/23 21:19 Pulse 72 02/24/23 21:29 Resp 17 02/24/23 21:29 BP 120/74 02/24/23 21:19 Pulse Ox 97 02/24/23 21:19 O2 Del Method Room Air 02/24/23 21:19 BMI result Body Mass Index 30.4 Middle-aged male lying in bed in mild distress Neck supple, no JVD Regular rate and rhythm, S1-S2 heard Bilateral wheezing appreciated, left-sided crackles present Abdomen soft nontender, no guarding, no rigidity Patient is awake, alert and oriented to self, place, time and person ; no focal motor deficit Psych: Normal mood No pedal edema Results Labs 02/24/23 17:41 02/24/23 17:41 Labs: Laboratory Results - last 24 hr 02/24/23 17:41 MCV 82.0 MCH 27.2 MCHC 33.2 RDW 12.1 Plt Count 218 MPV 11.9 Immature Gran % (Auto) 0.4 Neut % (Auto) 88.2 H Lymph % (Auto) 6.9 L [place] % (Auto) 3.8 Eos % (Auto) 0.5 Baso % (Auto) 0.2 Lymph # (Auto) 1.0 L [place] # (Auto) 0.6 Eos # (Auto) 0.1 Baso # (Auto) 0.0 Abs Immat Gran (auto) 0.06 H Absolute Neuts (auto) 13.1 H Absolute Nucleated RBC 0.000 Nucleated RBC % (auto) 0.0 Anion Gap 15 Estim Creat Clear Calc 78.7 Estimated GFR > 60 Random Glucose 120 H Calcium 10.0 Total Bilirubin 0.8 Direct Bilirubin 0.3 AST 27 ALT 26 Alkaline Phosphatase 80 Total Protein 7.8 Albumin 4.4 Imaging Radiologist's Impressions: Impressions Chest X-Ray 02/24/23 18:08 IMPRESSION: Patchy infiltrative change within the lingula and left base. Consider pneumonia. Assessment and Plan (1) Sepsis: Status: Acute (2) Asthma exacerbation: Status: Acute (3) Pneumonia: Qualifiers: Aspiration pneumonia type: unspecified Laterality: left Lung location: unspecified part of lung Status: Acute Plan This is a 47-year-old male with pertinent history of asthma not on home oxygen, gastroesophageal reflux disease who presents to the emergency department for evaluation of chills, fever and chest discomfort. #. Sepsis due to pneumonia. Concern for aspiration status post upper endoscopy. Will initiate empiric IV antibiotics. Blood culture and sputum culture obtained. Resuscitated with IV crystalloids. Lactic acid obtained #. Acute asthma exacerbation in the setting of above. Initiating systemic steroids. Scheduled and p.r.n. DuoNebs. Continue home inhaler Med rec pending DVT prophylaxis: Lovenox Full code Admit as inpatient and will require two night minimum hospital stay for IV antibiotics Time Spent With Patient Time: Total time managing care of this patient today ____ minutes. Quality Stroke Does the patient have a stroke diagnosis?: No VTE Prior VTE?: No VTE Risk Level:: Medical - moderate - high VTE Device Contraindication: Treatment Not Indicated VTE Drug Contraindication: N/A - Med Ordered
--- NOTE | 2023-02-24 22:11 | PHA.MEDREC ---
Pharmacy Consult ? Medication Reconciliation Pharmacy has completed the medication reconciliation. Patient confirmed medications. Anuja Graves, FabbyD
[2023-02-24] MEDS: Enoxaparin Sodium 40 MG/0.4 ML SYRINGE SUBCUT (23:08)
[2023-02-25] VITALS (19 sets, daily range): BP systolic 106–130; BP diastolic 62–73; PULSE 65–90; RESP 13–20; TEMP 36.4–37.1; O2SAT 92–995; BMI 30.6
--- NOTE | 2023-02-25 04:48 | PC.NURSE ---
pt at 2113 sepsis protocol started, bld cultures and labs obtained, lactate result 1.7
[2023-02-25 05:30] LABS: Alanine Aminotransferase 28 U/L (0-40); Albumin Level 3.9 g/dL (3.5-5.0); Alkaline Phosphatase 75 U/L (39-117); Anion Gap 12 (12-20); Aspartate Amino Transferase 22 U/L (5-37); Bilirubin Total 0.5 mg/dL (0.0-1.0); Blood Urea Nitrogen 13 mg/dL (9-16); Carbon Dioxide 22 mmol/L (22-29); Chloride 111 mmol/L (96-108); Creatinine Clr Calc Pharmacy 91.3; Estimated Glomerular Filt Rate > 60; Glucose Random 135 mg/dL (60-115); Sodium 141 mmol/L (135-145); Total Protein 6.9 g/dL (6.5-8.0)
--- NOTE | 2023-02-25 05:46 | PC.NURSE ---
pt assessed, denies any pain, tolerated iv fluids and antibotics
--- NOTE | 2023-02-25 09:16 | MHC.CM.PN ---
PT REPORTS HE LIVES WITH HIS [employer] AND IS INDEPENDENT HE HAS NO DME AND NO SERVICES PT REPORTS HE HAS COMPLETED A HCP IN THE PAST NAMING HIS MOTHER, COPY REQUESTED HE REPORTS HIS PCP IS AT [facility] DCP: HOME NO SERVICES [employer] TO TRANSPORT
--- NOTE | 2023-02-25 09:59 | PC.NURSE ---
a&ox3, vss and up to date, nsr on the quality assurance monitor final. pt c/o 5/10 chest pain that occurs only w/ inspirations. crackles noted throughout upon auscultation. respirations even and unlabored. medications administered per provider order. pt's mother called for status update on pt. pt ok'd information to be relayed on the phone. pt resting in no apparent distress w/ the lights dimmed. call [facility] placed within reach.
--- NOTE | 2023-02-25 11:28 | PC.NURSE ---
report given to RN on S3 - will notify transport.
[2023-02-25] MEDS: Albuterol/Iprat 2.5/0.5MG 3 ML AMPUL.NEB INHALE ×3 (12:31→20:17)
--- NOTE | 2023-02-25 15:18 | HO.PM.IMPN ---
Subjective Subjective Date of Service: 02/25/23 Interval History: Breathing somewhat improved overnight. Remains afebrile Review of Systems Denies chest pain Denies shortness of breath Denies nausea vomiting diarrhea Denies fever chills Physical Exam Vital Signs: Vital Signs: Last Vital Signs Temp 97.5 F 02/25/23 15:11 Pulse 82 02/25/23 15:11 Resp 18 02/25/23 15:11 BP 123/73 02/25/23 15:11 Pulse Ox 95 02/25/23 15:11 O2 Del Method Room Air 02/25/23 15:11 BMI result Body Mass Index 30.6 Const: Other: Awake alert no acute distress Resp: Other: Diminished with scant expiratory wheezes throughout Cardio: Other: No S4; positive S1-S2; no S3 murmurs rubs or gallops GI: Other: Soft nontender nondistended normoactive bowel sounds Extrem: Other: No edema bilaterally Objective Data Active Medications Acetaminophen (Acetaminophen 325 Mg Tablet) 650 mg PO Q6H PRN PRN Reason: Pain, Mild (Pain Scale 1-3) Albuterol/Ipratropium (Albuterol/Iprat 2.5/0.5mg 3 Ml Ampul.Neb) 3 ml INHALE RQ4H WHILE AWAKE [facility] Last Admin: 02/25/23 12:31 Dose: 3 ml Documented By: EVGENY Albuterol/Ipratropium (Albuterol/Iprat 2.5/0.5mg 3 Ml Ampul.Neb) 3 ml INHALE Q4H PRN PRN Reason: Wheezing Enoxaparin Sodium (Enoxaparin Sodium 40 Mg/0.4 Ml Syringe) 40 mg SUBCUT Q24H [facility] Last Admin: 02/24/23 23:08 Dose: 40 mg Documented By: SOL Ampicillin Sodium/Sulbactam (Sodium 3 gm/ Sodium Chloride) 100 mls @ 200 mls/hr IV Q6H [facility] Last Infusion: 02/25/23 10:29 Dose: Infused Documented By: LIDIA Melatonin (Melatonin 3 Mg Tablet) 6 mg PO BEDTIME PRN PRN Reason: Insomnia Methylprednisolone Sodium Succinate (Methylprednisolone Sod Succ 125 Mg/2 Ml Vial) 60 mg IVPUSH Q6H [facility] Last Admin: 02/25/23 13:09 Dose: 60 mg Documented By: NIDIA Ondansetron HCl (Ondansetron Hcl 4 Mg/2 Ml Vial) 4 mg IVPUSH Q8H PRN PRN Reason: Nausea and Vomiting Sodium Chloride (0.9 % Sodium Chloride Flush 3 Ml Syringe) 3 ml IVFLUSH QSHIFT [facility] Last Admin: 02/25/23 08:25 Dose: 3 ml Documented By: JEFF Labs 02/24/23 17:41 02/25/23 04:16 Labs: Laboratory Results - last 24 hr 02/24/23 02/24/23 02/25/23 17:41 21:42 04:16 MCV 82.0 MCH 27.2 MCHC 33.2 RDW 12.1 Plt Count 218 MPV 11.9 Immature Gran % (Auto) 0.4 Neut % (Auto) 88.2 H Lymph % (Auto) 6.9 L [place] % (Auto) 3.8 Eos % (Auto) 0.5 Baso % (Auto) 0.2 Lymph # (Auto) 1.0 L [place] # (Auto) 0.6 Eos # (Auto) 0.1 Baso # (Auto) 0.0 Abs Immat Gran (auto) 0.06 H Absolute Neuts (auto) 13.1 H Absolute Nucleated RBC 0.000 Nucleated RBC % (auto) 0.0 Hold Purple Top SEE NOTE Anion Gap 15 12 Estim Creat Clear Calc 78.7 91.3 Estimated GFR > 60 > 60 Random Glucose 120 H 135 H Lactic Acid 1.7 Calcium 10.0 9.0 D Total Bilirubin 0.8 0.5 Direct Bilirubin 0.3 AST 27 22 ALT 26 28 Alkaline Phosphatase 80 75 Total Protein 7.8 6.9 Albumin 4.4 3.9 Influenza Type A (PCR) NEGATIVE Influenza Type B (PCR) NEGATIVE RSV RNA Qual (PCR) NEGATIVE SARS-CoV-2 RNA (RT-PCR) NEGATIVE Assessment and Plan (1) Pneumonia: Status: Acute (2) Asthma exacerbation: Status: Acute Plan This is a 47-year-old male with pertinent history of asthma not on home oxygen, gastroesophageal reflux disease who presents to the emergency department for evaluation of chills, fever and chest discomfort. Developed shortness of breath after endoscopy 1.Sepsis due to pneumonia (sepsis resolved) -continue Unasyn to cover aspiration as suspected post EGD -likely some degree of pneumonitis; continue pulse dose steroids -DuoNebs Q 4 p.r.n. -titrate O2 (if needed) to maintain sats greater equal to 90% 2.GERD -continue PPI Lovenox Full code Will require ongoing hospitalization for IV antibiotics to treat pneumonia Time Spent With Patient Time: Total time managing care of this patient today ____ minutes. Quality Stroke Does the patient have a stroke diagnosis?: No VTE Prior VTE?: No VTE Risk Level:: Medical - moderate - high VTE Device Contraindication: Treatment Not Indicated VTE Drug Contraindication: N/A - Med Ordered
[2023-02-25] MEDS: Omeprazole 40 MG CAPSULE.DR PO (15:41)
[2023-02-25] MEDS: methylPREDNISolone Sod Succ 125 MG/2 ML VIAL 60 MG IVPUSH (20:32)
[2023-02-25] MEDS: Enoxaparin Sodium 40 MG/0.4 ML SYRINGE SUBCUT (22:15)
[2023-02-26] MEDS: methylPREDNISolone Sod Succ 125 MG/2 ML VIAL 60 MG IVPUSH ×2 (01:18→07:51)
[2023-02-26 04:00] VITALS: BP 129/62; PULSE 65; RESP 18; TEMP 36.2; O2SAT 94
[2023-02-26 05:38] LABS: Basophils Percent Auto 0.1 % (0-2); Eosinophils Percent Auto 0.1 % (0-4); Hematocrit 40.2 % (42.0-52.0); Hemoglobin 13.1 g/dl (14.0-18.0); Imm Gran Abs Auto 0.12 X10*3/uL (0.00-0.03); Imm Gran Pct Auto 0.7 % (0.0-0.4); Lymphocytes Absolute Auto 1.3 X10*3/uL (1.2-4.9); Lymphocytes Percent Auto 7.4 % (20-40); MANUAL DIFF FLAG SCAN; Mean Corpuscular HGB Conc 32.6 g/dl (31.0-36.0); Mean Corpuscular Hemoglobin 27.2 pg (27.0-33.0); Mean Corpuscular Volume 83.4 fL (80.0-98.0); Mean Platelet Volume 12.6 fL (9.4-12.4); Monocytes Absolute Auto 0.2 X10*3/uL (0.1-1.2); Monocytes Percent Auto 1.3 % (2-11); Neutrophils Absolute Auto 15.6 x10*3/uL (2.0-8.3); Neutrophils Percent Auto 90.4 % (45-73); Platelet Count 227 X10*3/uL (160-400); Red Blood Count 4.82 X10*6/uL (4.60-5.80); Red Cell Distribution Width 12.3 % (11.0-16.0); SCAN SMEAR FLAG 1; White Blood Count 17.2 X10*3/uL (4.8-10.8)
[2023-02-26] MEDS: Omeprazole 40 MG CAPSULE.DR PO (05:48)
[2023-02-26 05:55] LABS: Alanine Aminotransferase 25 U/L (0-40); Albumin Level 3.9 g/dL (3.5-5.0); Alkaline Phosphatase 72 U/L (39-117); Anion Gap 12 (12-20); Aspartate Amino Transferase 15 U/L (5-37); Bilirubin Total 0.3 mg/dL (0.0-1.0); Blood Urea Nitrogen 15 mg/dL (9-16); Calcium 9.5 mg/dL (8.4-10.2); Carbon Dioxide 24 mmol/L (22-29); Chloride 108 mmol/L (96-108); Creatinine Clr Calc Pharmacy 94.8; Estimated Glomerular Filt Rate > 60; Glucose Fasting 131 mg/dL (60-99); Potassium 4.1 mmol/L (3.3-5.1); Sodium 140 mmol/L (135-145); Total Protein 6.9 g/dL (6.5-8.0)
[2023-02-26 05:59] LABS: SLIDE REVIEW VERIFIED
[2023-02-26 07:20] VITALS: BP 124/66; PULSE 66; RESP 18; TEMP 36.4; O2SAT 95
[2023-02-26] MEDS: Fluticasone/Vilanterol 100/25 BLST.W.DEV 1 PUFF INHALE (07:49)
[2023-02-26] MEDS: Albuterol/Iprat 2.5/0.5MG 3 ML AMPUL.NEB INHALE (07:49)
[2023-02-26 07:50] VITALS: PULSE 66; RESP 16; O2SAT 95
[2023-02-26] MEDS: Multivitamin TABLET 1 TAB PO (07:51)
[2023-02-26] MEDS: predniSONE 20 MG TABLET 40 MG PO (10:51)
--- NOTE | 2023-02-26 12:25 | P.DS_ITS ---
DS: Providers Provider Date of Service: 02/26/23 Date of admission: 02/24/23 22:19 Date of discharge: 02/26/23 Primary care physician: [facility] DS: Diagnosis Discharge Diagnosis (1) Pneumonia: Status: Acute (2) Asthma exacerbation: Status: Acute (3) Otitis media: Status: Acute (4) Sepsis: Status: Acute DS: Summary Hospital Course Hospital Course: from admission H+P by hospitalist Butch Chamorro, 02/24/23: This is a 47-year-old male with pertinent history of asthma not on home oxygen, gastroesophageal reflux disease who presents to the emergency department for evaluation of chills, fever and chest discomfort. Patient states he had an upper endoscopy today for evaluation of GERD. After the endoscopy, patient states he has been having chills, intermittent productive cough and pleuritic chest discomfort. No symptoms prior to endoscopy. Also has been having associated subjective fever and generalized weakness. Does have history of asthma and states since the cough started, he has been having dyspnea which is worse with ambulation and wheezing. Denies chest discomfort, palpitations, abdominal pain, changes in urinary or bowel habits. In the emergency department, imaging concerning for pneumonia and patient was found to be septic. He was admitted to the medical-surgical floor and treated with ampicillin- sulbactam for pneumonia and otitis media. He was also given steroids for a component of asthma exacerbation. He did not require oxygen and his symptoms improved. He was discharged on amoxicillin-clavaulanate and a short course of prednisone. Time Spent with Patient Time attestation: Total time managing care of this patient today _35___ minutes. Discharge coordination time: Greater than 30 minutes Quality: Safe Use of Opioids Does Pt have an Active Cancer Diagnosis on the Problem List?: No Quality: Stroke Does the patient have a stroke diagnosis?: No Physical Exam Vital Signs: Vital Signs: Last Vital Signs Temp 97.5 F 02/26/23 07:20 Pulse 66 02/26/23 07:50 Resp 16 02/26/23 07:50 BP 124/66 02/26/23 07:20 Pulse Ox 95 02/26/23 07:20 O2 Del Method Room Air 02/26/23 07:20 BMI result Body Mass Index 30.6 Gen: in no acute distress HEENT: sclera anicteric, moist mucus membranes Neck: supple Lungs: clear to auscultation bilaterally Heart: regular rate and rhythm, no murmurs Abd: soft, non-tender, non-distended Ext: no edema Skin: warm/well-perfused Neuro: alert and oriented x3, no focal findings Psych: appropriate affect DS: Data Data Completed and Pending Completed studies during hospitalization [Text1]: Laboratory Results WBC 17.2 X10*3/uL (4.8-10.8) H 02/26/23 04:10 RBC 4.82 X10*6/uL (4.60-5.80) 02/26/23 04:10 Hgb 13.1 g/dl (14.0-18.0) L 02/26/23 04:10 Hct 40.2 % (42.0-52.0) L 02/26/23 04:10 MCV 83.4 fL (80.0-98.0) 02/26/23 04:10 MCH 27.2 pg (27.0-33.0) 02/26/23 04:10 MCHC 32.6 g/dl (31.0-36.0) 02/26/23 04:10 RDW 12.3 % (11.0-16.0) 02/26/23 04:10 Plt Count 227 X10*3/uL (160-400) 02/26/23 04:10 MPV 12.6 fL (9.4-12.4) H 02/26/23 04:10 Immature Gran % (Auto) 0.7 % (0.0-0.4) H 02/26/23 04:10 Neut % (Auto) 90.4 % (45-73) H 02/26/23 04:10 Lymph % (Auto) 7.4 % (20-40) L 02/26/23 04:10 [place] % (Auto) 1.3 % (2-11) L 02/26/23 04:10 Eos % (Auto) 0.1 % (0-4) 02/26/23 04:10 Baso % (Auto) 0.1 % (0-2) 02/26/23 04:10 Lymph # (Auto) 1.3 X10*3/uL (1.2-4.9) 02/26/23 04:10 [place] # (Auto) 0.2 X10*3/uL (0.1-1.2) 02/26/23 04:10 Eos # (Auto) 0.0 X10*3/uL (0.0-0.4) 02/26/23 04:10 Baso # (Auto) 0.0 X10*3/uL (0.0-0.2) 02/26/23 04:10 Abs Immat Gran (auto) 0.12 X10*3/uL (0.00-0.03) H 02/26/23 04:10 Absolute Neuts (auto) 15.6 x10*3/uL (2.0-8.3) H 02/26/23 04:10 Absolute Nucleated RBC 0.000 X10*3/uL (0.0-0.012) 02/26/23 04:10 Nucleated RBC % (auto) 0.0 /100WBC (0.0-0.2) 02/26/23 04:10 Smear Tech's Comments VERIFIED 02/26/23 04:10 Hold Purple Top SEE NOTE 02/25/23 04:16 Sodium 140 mmol/L (135-145) 02/26/23 04:10 Potassium 4.1 mmol/L (3.3-5.1) 02/26/23 04:10 Chloride 108 mmol/L (96-108) 02/26/23 04:10 Carbon Dioxide 24 mmol/L (22-29) 02/26/23 04:10 Anion Gap 12 (12-20) 02/26/23 04:10 BUN 15 mg/dL (9-16) 02/26/23 04:10 Creatinine 0.85 mg/dL (0.5-1.4) 02/26/23 04:10 Estim Creat Clear Calc 94.8 02/26/23 04:10 Estimated GFR > 60 02/26/23 04:10 Random Glucose 135 mg/dL (60-115) H 02/25/23 04:16 Fasting Glucose 131 mg/dL (60-99) H 02/26/23 04:10 Lactic Acid 1.7 mmol/L (0.5-2.0) 02/24/23 21:42 Calcium 9.5 mg/dL (8.4-10.2) 02/26/23 04:10 Total Bilirubin 0.3 mg/dL (0.0-1.0) 02/26/23 04:10 Direct Bilirubin 0.3 mg/dL (0.0-0.5) 02/24/23 17:41 AST 15 U/L (5-37) 02/26/23 04:10 ALT 25 U/L (0-40) 02/26/23 04:10 Alkaline Phosphatase 72 U/L (39-117) 02/26/23 04:10 Troponin I High Sens < 2.7 ng/L (<3.5-35.0) 02/24/23 17:41 Total Protein 6.9 g/dL (6.5-8.0) 02/26/23 04:10 Albumin 3.9 g/dL (3.5-5.0) 02/26/23 04:10 Procalcitonin 0.10 ng/mL 02/26/23 04:10 Influenza Type A (PCR) NEGATIVE (Negative) 02/24/23 21:42 Influenza Type B (PCR) NEGATIVE (Negative) 02/24/23 21:42 RSV RNA Qual (PCR) NEGATIVE (Negative) 02/24/23 21:42 SARS-CoV-2 RNA (RT-PCR) NEGATIVE (Negative) 02/24/23 21:42 Impressions Chest X-Ray 02/24/23 18:08 IMPRESSION: Patchy infiltrative change within the lingula and left base. Consider pneumonia. Discharge Plan Discharge Anticipated Discharge Date/Time: 02/26/23 12:02 Patient Disposition: Home, Self-Care Discharge Diagnosis: sepsis due to pneumonia, otitis media, asthma exacerbation Referrals: Physician,Unknown J [Primary Care Provider] - 1 Week Discharge Medications: New prednisone 20 mg Tablet 40 mg PO DAILY Qty: 4 0RF amoxicillin-pot clavulanate 875-125 mg tablet 1 tab PO BID Qty: 8 0RF Continued fluticasone propion-salmeterol [Advair Diskus] 250-50 mcg/dose blister with device 1 puff inhalation BID multivitamin Tablet 1 tab PO DAILY albuterol sulfate 90 mcg/actuation aerosol powdr breath activated 2 inh inhalation Q4-6H PRN (Reason: shortness of breath or wheezing) Qty: 1 0 RF Discharge Orders: Discharge Order (Routine); Ordered 02/26/23 Ordered By: Sejal Garcia Diet: Advance to usual diet Activity on Discharge: As tolerated Stand Alone Forms: Patient Portal Discharge page Care Plan Goals: recovery from infection and asthma exacerbation Health Concerns: sepsis due to pneumonia, otitis media, asthma exacerbation amoxicillin-clavulanate 875-125 mg twice daily for 4 days prednisone 40 mg once daily for 2 days albuterol as needed for shortness of breath; continue Advair Please follow up with your primary care doctor within 1 week. Return to the hospital if you experience recurrent or worsening symptoms. Plan of Treatment: as above Assessment: See Discharge Summary.
--- NOTE | 2023-02-26 13:02 | MHC.CM.PN ---
PT WILL DC HOME TODAY WITH NO SERVICES VIA PRIVATE TRANSPORT
--- NOTE | 2023-02-26 13:21 | MHC.SL.SWA ---
Speech Pathologist Impression: Risk of Aspiration Due to: Dysphasia Diet Status: Liquid Consistency and Strategies for Safe Swallow: Liquid Intake Recommendation: Thin Liquid Intake Strategies: Unrestricted Solid Food Consistency: Dietary Recommendations: Regular Additional Modifications to Solid Foods: Adhere to GERD dietary recommendations. Oral Medication Intake: Whole with Liquid Please contact the pharmacy regarding appropriate crushable or liquid drug formulations that are available whenever modified delivery is recommended. Compensatory Strategies and Precautions to be Taken for Safe Swallow: Sitting Upright (90 deg) Supervision While Eating and Drinking for Safe Swallow: None Needed Foods to Avoid: Spicy and and acidic food and drink, carbonated beverages. Swallowing Recommended Treatments: Recommendation for Speech: NA:Typical Evaluation Comment: Patient presents with all aspects of swallow and oral motor function WFL. Patient has substantial history of chronic GERD: Recommend precautions to prevent microaspiration post meals: Patient should remain seated upright for at least 30 minutes after meal, keep head of bed elevated at least 20 degrees during sleep/rest, avoid spicy and acidic food and drink, as well as carbonated beverages. Frequency/Duration: Date Range for Service Req: Timeline to reassess: Cardiac Exercise Physiologist Clinican/Clinical Fellow: No Supervisory Statement: I have reviewed and agree with the student/clinical fellow's documentation: N/A Speech Language Pathologist: Graciela Mendez M.A., CCC-ICER MACHINE
--- NOTE | 2023-03-03 11:28 | P.CDIM_ITS ---
PROVIDER RESPONSE TEXT: To clarify, the appropriate diagnosis supported by the clinical indicators: Moderate persistent: with acute exacerbation QUERY TEXT: PHYSICIAN'S DOCUMENTATION REQUEST Date of Query: 02/26/2023 01:00 PM EDT Patient Name: DENISE MILLER Admit Date: 02/25/2023 Dear Sejal Garcia, A review of the medical record indicates additional documentation may be needed. Please review below and update the documentation accordingly. Clinical indicators: Acute asthma exacerbation Initiating systemic steroids p.r.n., Duonebs Based on the above, please clarify in the Progress Notes further specificity regarding the type and a cuity of the asthma: Mild intermittent Please specify if with or without acute exacerbation or status asthmaticus Mild persistent Please specify if with or without acute exacerbation or status asthmaticus Moderate persistent Please specify if with or without acute exacerbation or status asthmaticus Severe persistent Please specify if with or without acute exacerbation or status asthmaticus Exercise induced Please specify if with or without acute exacerbation or status asthmaticus Chronic obstructive asthma and indicate if with acute lower respiratory infection Please specify if with or without acute exacerbation or status asthmaticus Asthma with underlying COPD and indicate if with acute lower respiratory infection Please specify if with or without acute exacerbation or status asthmaticus Other (explain)Clinically unable to determine (explain)Thank you, Enriqueta Solitario, CCS, CDIS Use of terms such as suspected, likely, concern for, or probable (associated with a specific diagnosi s that is being evaluated, monitored, or treated as if it exists) are acceptable and can be coded in the inpatient se tting, when documented at the time of discharge. Please use your independent medical judgment in providing your response. THIS QUERY IS PART OF THE PERMANENT MEDICAL RECORD
== END 2023-02-26 14:24 | disposition home or self-care (01) | DRG 720 ==
LOC: HO.ED 21:26 → HO.EDOVER 22:20 → HO.S3 02-25 11:05
PROVIDERS: Hospitalist; Admitting Provider Student in an Organized Health Care Education/Training Program; Emergency Provider Emergency Medicine; PCP Internal Medicine; Visit Provider Family Medicine
DX: A41.9 Sepsis, unspecified organism (principal); J45.41 Moderate persistent asthma with (acute) exacerbation; J95.4 Chemical pneumonitis due to anesthesia; H66.90 Otitis media, unspecified, unspecified ear; K21.9 Gastro-esophageal reflux disease without esophagitis; Z20.822 Contact with and (suspected) exposure to COVID-19; Z79.51 Long term (current) use of inhaled steroids; Z79.899 Other long term (current) drug therapy
CPT/HCPCS: 0241U; 36415; 71046; 80048; 80053; 80076; 83605; 84145; 84484; 85025; 87040; 92610; 93005; 94640; 99221; 99285; J0295; J0456; J0696; J1650; J2930

== ENCOUNTER → 2023-02-24 21:14 | Outpatient (BNV) | payer OTHER, SELFPAY | PROVIDERS: Emergency Provider Emergency Medicine; Visit Provider Student in an Organized Health Care Education/Training Program | DX: A41.9 Sepsis, unspecified organism (principal); J45.901 Unspecified asthma with (acute) exacerbation; J18.9 Pneumonia, unspecified organism; H65.02 Acute serous otitis media, left ear | CPT/HCPCS: 99222; 99233; 99239 ==

== ENCOUNTER 2023-03-11 11:05 | Outpatient (REF) | payer OTHER, SELFPAY ==
--- NOTE | ~2023-03-11 | XR_ITS ---
EXAMINATION: XR CHEST 2 VIEWS CLINICAL INFORMATION: Follow-up left lower lobe pneumonia. COMPARISON: Chest radiographs dated 02/24/2023 and 08/28/2022. TECHNIQUE: Frontal and lateral views of the chest were obtained. FINDINGS: The heart, great vessels, pulmonary vasculature and mediastinum are normal. The lungs show no focal infiltrate, effusion or pneumothorax. There is interim clearance of the patient's left lower lobe pneumonia. A small left pericardial fat pad is seen, stable from 08/28/2022. There is no acute osseous abnormality. XR/XR chest 2V IMPRESSION: There is interim clearance of the patient's left lower lobe pneumonia. No new infiltrate or congestive heart failure is seen.
== END 2023-03-11 11:06 | disposition home or self-care (01) ==
LOC: HO.XRAY 11:05
PROVIDERS: PCP Internal Medicine; Visit Provider Internal Medicine
DX: J18.9 Pneumonia, unspecified organism (principal)
CPT/HCPCS: 71046

== ENCOUNTER 2023-04-13 15:58 | Emergency (ER) | payer OTHER, SELFPAY ==
--- NOTE | ~2023-04-13 | XR_ITS ---
EXAMINATION: XR CHEST CLINICAL INFORMATION: Cough and congestion COMPARISON: None available. TECHNIQUE: 2 views of the chest were obtained. FINDINGS: No significant abnormality is noted involving the heart, lungs, mediastinum, bony thorax or soft tissues. XR/XR chest 2V IMPRESSION: Unremarkable chest examination.
--- NOTE | 2023-04-13 16:00 | ECG_ITS ---
Test Reason : CP Blood Pressure : / mmHG Vent. Rate : 060 BPM Atrial Rate : 060 BPM P-R Int : 152 ms QRS Dur : 088 ms QT Int : 388 ms P-R-T Axes : 048 036 016 degrees QTc Int : 388 ms Sinus rhythm with Premature atrial complexes Otherwise normal ECG When compared with ECG of 24-FEB-2023 16:48, Premature atrial complexes are now Present Vent. rate has decreased BY 36 BPM Referred By: Brandy Lara Electronically Signed By:LETY VILLAREAL MD
[2023-04-13 16:23] VITALS: BP 133/79; PULSE 60; RESP 18; TEMP 36.8; O2SAT 97; BMI 30.3
--- NOTE | 2023-04-13 16:27 | ED.CHESTPAIN ---
HPI - Chest Pain General Chief Complaint: Chest Pain Stated Complaint: chest, neck and ear pain Time Seen by Provider: 04/13/23 23:07 Source: patient Mode of arrival: ambulatory Limitations: no limitations History of Present Illness HPI narrative: 48-year-old male came in for evaluation of multiple complaints patient s/p cervical spine surgery 6 months ago at [facility], patient been having chronic neck pain. For the past month patient been complaining of anterior neck pain anterior chest wall pain, right-sided chest pain pain is severe 10/10 especially with movement. Patient also been complaining of bilateral ear pain and ringing for about a month son is been having upper respiratory infection. Related Data Home Medications Medication Instructions Recorded Confirmed fluticasone 250 mcg-salmeterol 50 1 puff inhalation BID 07/17/22 02/24/23 mcg/dose blistr powdr for inhalation (Advair Diskus) multivitamin 1 tab PO DAILY 02/24/23 02/24/23 Previous Rx's Medication Instructions Recorded albuterol sulfate 90 mcg/actuation 2 inh inhalation Q4-6H PRN 02/26/23 breath activated powder inhaler shortness of breath or wheezing #1 ea amoxicillin 875 mg-potassium 1 tab PO BID #8 tabs 02/26/23 clavulanate 125 mg tablet prednisone 20 mg tablet 40 mg (2 x 20 mg) PO DAILY #4 tabs 02/26/23 tramadol 50 mg tablet 50 mg PO BID PRN pain #15 tabs 04/14/23 Allergies Allergy/AdvReac Type Severity Reaction Status Date / Time morphine [MORPHINE] Allergy Intermediate HIVES Verified 07/18/22 11:49 acetaminophen [Percocet] Allergy Mild Hives Verified 07/18/22 11:49 oxycodone [Percocet] Allergy Unknown Hives Verified 02/27/21 15:46 seafood Allergy Unknown Rash Verified 07/18/22 11:49 Penicillins Allergy Hives Verified 02/27/21 16:23 Review of Systems Review of Systems: All other systems are reviewed and are negative Constitutional: Reports as per HPI and Reports no additional constitutional complaints Eyes: Reports as per HPI and Reports no additional eye complaints Reports system reviewed and no additional complaints, except as documented Cardiovascular: Reports as per HPI and Reports no additional cardiovascular complaints Respiratory: Reports as per HPI and Reports no additional respiratory complaints Gastrointestinal: Reports as per HPI and Reports no additional gastrointestinal complaints Genitourinary: Reports no additional female genitourinary complaints Musculoskeletal: Reports no additional musculoskeletal complaints Skin/Breast: Reports system reviewed and no additional complaints, except as docu Psychiatric: Reports no additional psychiatric complaints Endocrine: Reports no additional endocrine complaints Hematologic/Lymphatic: Reports no additional hematologic/lymphatic complaints Allergic/Immunologic: Reports no additional allergic/immunologic complaints Reports system reviewed and no additional complaints, except as documented and Reports Abnormal speech present [facility] Past Medical History Medical History Otitis media Pneumonia Gastric intestinal metaplasia Cholecystitis Psoriasis Disc disorder Arthritis Asthma GERD (gastroesophageal reflux disease) Surgical History History of colonoscopy History of endoscopy H/O discectomy Hx of cholecystectomy Hx of LASIK Social History Household Members: Significant Other and Children Housing: House Do you presently have visiting nurse or other home services: No Alcohol intake: current Alcohol intake frequency: does not drink Patient Tobacco Use Status: Never used Tobacco Advance Directives: No Advance Directives Information Provided: Yes service: No Physical Exam Vital Signs: Vital Signs: Last Vital Signs Temp 98.0 F 04/13/23 22:57 Pulse 52 04/13/23 22:57 Resp 17 04/13/23 22:57 BP 135/80 04/13/23 22:57 Pulse Ox 98 04/13/23 22:57 O2 Del Method Room Air 04/13/23 22:57 BMI result Body Mass Index 30.3 Vital signs have been reviewed and appear to be correct. Blood pressure elevated. Heart rate normal. Respiratory rate normal. Temperature normal. Oxygen saturation normal. Appearance: Alert. Oriented X3. No acute distress. Head: Normal external exam. Normocephalic. Atraumatic. No Campos signs noted. No raccoon eyes noted Eyes: PERRLA. EOMI. Conjunctiva and sclera normal. Eyelids normal. ENT: TM's Normal. Pharynx normal. Uvula midline. Moist mucous membranes. No trismus noted. No drooling noted. No muffled voice noted. Neck: Normal inspection. Neck supple. FROM. No adenopathy. Thyroid Normal. No meningeal signs. No neck mass noted. CVS: Normal heart rate and rhythm. Heart sound normal. No murmurs noted. Pulses normal throughout. Respiratory: No respiratory distress. Painless inspiration. Breath sounds normal. No wheezes/rales/rhonchi noted. Chest nontender. No accessory muscle usage noted or decreased air movement noted. Abdomen: Soft and nontender. Bowel sounds normal in all 4 quadrants. No distention noted. No organomegaly noted. No visible injury noted. Back: No CVA tenderness. Full range of motion noted. Skin: Skin warm and dry. Normal skin color. Normal skin turgor. No rashes/lesions/lacerations noted. Extremities: No lower extremity edema. Extremities exhibit normal range of motion. Extremities nontender. Neuro: Oriented X 3. Cranial nerve exam: II-XII are grossly intact No motor deficit. No sensory deficit. Reflexes normal. Course Course Course Narrative: This is a rapid medical exam. Defer additional HPI, ROS, PE to prior provider. 48-year-old male with history of asthma here with complaints of 1 week of chest discomfort, body aches, chills, bilateral ear pain. His child's at home sick with RSV and COVID. Will obtain EKG, chest x-ray, labs, viral test Vitals stable Reevaluation(s) Reevaluation #1: In months history of chest pain and bilateral ear ringing with normal exam, heart score of 1, patient is allergic to multiple pain medication but responded well to tramadol plan Will discharge the patient to follow-up with PCP/neurosurgeon (who did the surgery)./ENT. Time: 23:35 Reevaluation #2: Patient received tramadol p.o. appears to be a and less pain able to ambulate in the emergency department better. Will discharge and follow-up with PCP. Time: 01:03 Medications Administered Discontinued Medications Generic Name Dose Route Start Last Admin Trade Name Freq PRN Reason Stop Dose Admin Tramadol HCl 50 mg 04/13/23 23:22 04/13/23 23:31 Tramadol Hcl 50 Mg Tablet PO 04/13/23 23:23 50 mg ONCE ONE Administration Medical Decision Making Differential Diagnosis Differential Diagnoses: The differential diagnosis associated with the presentation includes (Ear infection, ACS, pneumonia, pneumothorax, pleural effusion, electrolyte abnormality, severe anemia, muscular pain.) Admission/Observation Consideration of admission/observation: Escalation of care including admission/observation considered Lab Data [facility] Lab Attestation statement: I reviewed the patient's lab results. 04/13/23 16:39 04/13/23 16:39 Labs: Lab Results 04/13/23 Range/Units 16:39 WBC 6.9 (4.8-10.8) X10*3/uL RBC 5.45 (4.60-5.80) X10*6/uL Hgb 14.8 (14.0-18.0) g/dl Hct 45.0 (42.0-52.0) % MCV 82.6 (80.0-98.0) fL MCH 27.2 (27.0-33.0) pg MCHC 32.9 (31.0-36.0) g/dl RDW 12.3 (11.0-16.0) % Plt Count 230 (160-400) X10*3/uL MPV 12.1 (9.4-12.4) fL Immature Gran % (Auto) 0.3 (0.0-0.4) % Neut % (Auto) 53.4 (45-73) % Lymph % (Auto) 34.9 (20-40) % Bee % (Auto) 5.9 (2-11) % Eos % (Auto) 4.8 H (0-4) % Baso % (Auto) 0.7 (0-2) % Lymph # (Auto) 2.4 (1.2-4.9) X10*3/uL Bee # (Auto) 0.4 (0.1-1.2) X10*3/uL Eos # (Auto) 0.3 (0.0-0.4) X10*3/uL Baso # (Auto) 0.1 (0.0-0.2) X10*3/uL Abs Immat Gran (auto) 0.02 (0.00-0.03) X10*3/uL Absolute Neuts (auto) 3.7 (2.0-8.3) x10*3/uL Absolute Nucleated RBC 0.000 (0.0-0.012) X10*3/uL Nucleated RBC % (auto) 0.0 (0.0-0.2) /100WBC Sodium 142 (135-145) mmol/L Potassium 4.4 (3.3-5.1) mmol/L Chloride 105 (96-108) mmol/L Carbon Dioxide 29 (22-29) mmol/L Anion Gap 12 (12-20) BUN 14 (9-16) mg/dL Creatinine 1.06 (0.5-1.4) mg/dL Estim Creat Clear Calc 74.8 Estimated GFR > 60 Random Glucose 85 (60-115) mg/dL Calcium 9.7 (8.4-10.2) mg/dL Troponin I High Sens < 2.7 (<3.5-35.0) ng/L Influenza Type A (PCR) NEGATIVE (Negative) Influenza Type B (PCR) NEGATIVE (Negative) RSV RNA Qual (PCR) NEGATIVE (Negative) SARS-CoV-2 RNA (RT-PCR) NEGATIVE (Negative) Independent Interpretation I performed an independent interpretation of an: Plain X-Ray (Chest: Unremarkable chest examination.) Radiology Impression Discussion of test interpretation with radiology: I have reviewed the radiologist's reading. Discharge Plan Discharge Clinical Impression: Neck pain, Atypical chest pain Patient Disposition: Home, Self-Care Instructions: Chest Pain (ED) Additional Instructions: Follow-up with Dr. Wheeler Prescriptions: New tramadol 50 mg tablet 50 mg PO BID PRN (Reason: pain) Qty: 15 0RF No Action fluticasone propion-salmeterol [Advair Diskus] 250-50 mcg/dose blister with device 1 puff inhalation BID multivitamin Tablet 1 tab PO DAILY prednisone 20 mg Tablet 40 mg PO DAILY Qty: 4 0RF amoxicillin-pot clavulanate 875-125 mg tablet 1 tab PO BID Qty: 8 0RF albuterol sulfate 90 mcg/actuation aerosol powdr breath activated 2 inh inhalation Q4-6H PRN (Reason: shortness of breath or wheezing) Qty: 1 0RF Referrals: Yanique Wheeler MD [Physician] -
[2023-04-13 16:44] LABS: MANUAL DIFF FLAG NO
[2023-04-13 16:58] LABS: Anion Gap 12 (12-20); Blood Urea Nitrogen 14 mg/dL (9-16); Calcium 9.7 mg/dL (8.4-10.2); Carbon Dioxide 29 mmol/L (22-29); Chloride 105 mmol/L (96-108); Creatinine Clr Calc Pharmacy 74.8; Estimated Glomerular Filt Rate > 60; Glucose Random 85 mg/dL (60-115); Potassium 4.4 mmol/L (3.3-5.1); Sodium 142 mmol/L (135-145)
[2023-04-13 16:59] LABS: Basophils Absolute Auto 0.1 X10*3/uL (0.0-0.2); Basophils Percent Auto 0.7 % (0-2); Eosinophils Absolute Auto 0.3 X10*3/uL (0.0-0.4); Eosinophils Percent Auto 4.8 % (0-4); Hemoglobin 14.8 g/dl (14.0-18.0); Imm Gran Abs Auto 0.02 X10*3/uL (0.00-0.03); Imm Gran Pct Auto 0.3 % (0.0-0.4); Lymphocytes Absolute Auto 2.4 X10*3/uL (1.2-4.9); Lymphocytes Percent Auto 34.9 % (20-40); Mean Corpuscular HGB Conc 32.9 g/dl (31.0-36.0); Mean Corpuscular Hemoglobin 27.2 pg (27.0-33.0); Mean Corpuscular Volume 82.6 fL (80.0-98.0); Mean Platelet Volume 12.1 fL (9.4-12.4); Monocytes Absolute Auto 0.4 X10*3/uL (0.1-1.2); Monocytes Percent Auto 5.9 % (2-11); Neutrophils Absolute Auto 3.7 x10*3/uL (2.0-8.3); Neutrophils Percent Auto 53.4 % (45-73); Platelet Count 230 X10*3/uL (160-400); Red Blood Count 5.45 X10*6/uL (4.60-5.80); Red Cell Distribution Width 12.3 % (11.0-16.0); White Blood Count 6.9 X10*3/uL (4.8-10.8)
[2023-04-13 17:07] LABS: Troponin-I High Sensitivity < 2.7 ng/L (<3.5-35.0)
[2023-04-13 17:24] LABS: Influenza A PCR NEGATIVE (Negative); Influenza B PCR NEGATIVE (Negative); Resp Syncy Virus RNA Qual PCR NEGATIVE (Negative); SARS COV2 PCR INHOUSE NEGATIVE (Negative)
[2023-04-13 22:37] VITALS: BP 131/80; PULSE 56; RESP 18; O2SAT 98
[2023-04-13 22:57] VITALS: BP 135/80; PULSE 52; RESP 17; TEMP 36.7; O2SAT 98
[2023-04-13] MEDS: traMADoL HCL 50 MG TABLET PO (23:31)
[2023-04-14 01:25] VITALS: BP 141/81; RESP 17; O2SAT 97
== END 2023-04-14 01:33 | disposition home or self-care (01) ==
PROVIDERS: Nurse Practitioner Family; Emergency Provider Emergency Medicine
DX: M54.2 Cervicalgia (principal); R07.89 Other chest pain; Z20.822 Contact with and (suspected) exposure to COVID-19; Z20.828 Contact with and (suspected) exposure to other viral communicable diseases
CPT/HCPCS: 0241U; 36415; 71046; 80048; 84484; 85025; 93005; 99283; 99285

== ENCOUNTER 2023-04-30 08:17 | Outpatient (REF) | payer OTHER, SELFPAY ==
[2023-04-30 14:49] LABS: MANUAL DIFF FLAG NO
[2023-04-30 14:55] LABS: Basophils Percent Auto 0.4 % (0-2); Eosinophils Absolute Auto 0.3 X10*3/uL (0.0-0.4); Eosinophils Percent Auto 3.2 % (0-4); Hematocrit 45.6 % (42.0-52.0); Hemoglobin 14.7 g/dl (14.0-18.0); Imm Gran Abs Auto 0.03 X10*3/uL (0.00-0.03); Imm Gran Pct Auto 0.3 % (0.0-0.4); Lymphocytes Absolute Auto 2.1 X10*3/uL (1.2-4.9); Lymphocytes Percent Auto 22.5 % (20-40); Mean Corpuscular HGB Conc 32.2 g/dl (31.0-36.0); Mean Corpuscular Hemoglobin 27.1 pg (27.0-33.0); Mean Corpuscular Volume 84.1 fL (80.0-98.0); Mean Platelet Volume 12.4 fL (9.4-12.4); Monocytes Absolute Auto 0.4 X10*3/uL (0.1-1.2); Monocytes Percent Auto 4.3 % (2-11); Neutrophils Absolute Auto 6.5 x10*3/uL (2.0-8.3); Neutrophils Percent Auto 69.3 % (45-73); Platelet Count 236 X10*3/uL (160-400); Red Blood Count 5.42 X10*6/uL (4.60-5.80); Red Cell Distribution Width 12.4 % (11.0-16.0); White Blood Count 9.4 X10*3/uL (4.8-10.8)
[2023-04-30 15:14] LABS: Anion Gap 13 (12-20); Blood Urea Nitrogen 14 mg/dL (9-16); Calcium 9.6 mg/dL (8.4-10.2); Carbon Dioxide 28 mmol/L (22-29); Chloride 104 mmol/L (96-108); Estimated Glomerular Filt Rate > 60; Glucose Random 72 mg/dL (60-115); Potassium 3.9 mmol/L (3.3-5.1); Sodium 141 mmol/L (135-145)
[2023-04-30 15:43] LABS: Erythrocyte Sedimentation Rate 3 MM/HR (0-15)
[2023-04-30 15:44] LABS: Vitamin B12 855 pg/mL (200-900)
[2023-05-02 14:18] LABS: Anti Nuclear Antibody Screen NEGATIVE (NEGATIVE)
== END 2023-04-30 08:18 | disposition home or self-care (01) ==
LOC: HO.CHCLDS 08:17
PROVIDERS: Visit Provider Internal Medicine
DX: R20.2 Paresthesia of skin (principal); M79.10 Myalgia, unspecified site
CPT/HCPCS: 36415; 80048; 82607; 85025; 85652; 86038

== ENCOUNTER → 2024-02-24 10:31 | Outpatient (RCR) | payer OTHER, SELFPAY | END | disposition home or self-care (01) | LOC: HO.PTCHIC 02-20 06:48 | PROVIDERS: PCP Internal Medicine; Visit Provider Neurological Surgery | DX: M25.512 Pain in left shoulder (principal); R07.89 Other chest pain; Z98.890 Other specified postprocedural states | CPT/HCPCS: 97110; 97161 ==

== ENCOUNTER 2024-09-23 15:15 | Outpatient (AMB) | payer OTHER, SELFPAY ==
--- NOTE | 2024-09-23 15:18 | MHC.OFFVIS ---
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 Approximately three years ago, the patient underwent C4-C5 cervical spinal surgery (discectomy with spacer) due to severe symptoms from a pinched disc. Post-surgery, the patient continued to experience sharp and shooting neck pain, with radiation into the left shoulder, arm to the hand including ring and index fingers. The patient describes the pain as constant with electrical sensations and no relief from past surgical intervention. 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 The patient has significant anxiety related to medical procedures, specifically MRI, requesting open MRI availability. The pain and anxiety have motivated the patient to explore further diagnostic and therapeutic interventions. Denies previous attempts at injections. Recent x-ray reviewed, results as per below. Denies any recent MRI imaging. - Onset: Approximately three years ago - Quality: Sharp, shooting, constant pain with electrical zapping sensations - Location: Neck, left shoulder, radiating down the left arm to the index and ring fingers - Exacerbating factors: Overhead activities, job-related movements - Relieving factors: None effectively identified; physical therapy and medications were attempted with limited success - Interference: Activities of daily living, job performance, interaction with family - Affect: The pain causes significant anxiety, particularly with medical procedures - Analgesia: Currently using Tylenol, ibuprofen, and gabapentin with limited relief - Adverse Effects: Nausea and anxiety noted with gabapentin use - Activities of Daily Living: Pain 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 and daily activities with family - Aberrant Drug Related Behaviors: None reported Denies implantable devices, pacemaker or defibrillator Denies current use of nicotine, tobacco, alcohol or illicit substances PFSH Medical History Otitis media Pneumonia Gastric intestinal metaplasia Cholecystitis Psoriasis Disc disorder Arthritis Asthma GERD (gastroesophageal reflux disease) Surgical History History of colonoscopy History of endoscopy H/O discectomy Hx of cholecystectomy Hx of LASIK Social History Household Members: Significant Other and Children Housing: House Do you presently have visiting nurse or other home services: No Alcohol intake: current Alcohol intake frequency: does not drink Patient Tobacco Use Status: Never used Tobacco service: No Review of Systems Const Details: - Musculoskeletal: Reports persistent neck and shoulder pain, muscle tightness, inflammation - Neurological: Reports pain radiation and electrical sensations - Psychiatric: Reports anxiety especially related to medical procedures and medication use - Respiratory: Denies respiratory symptoms - Gastrointestinal: Denies gastrointestinal issues apart from medication-induced nausea Physical Exam Vital Signs: Last Vital Signs Pulse 60 09/23/24 15:30 BP 126/81 09/23/24 15:30 Pulse Ox 98 09/23/24 15:30 Oxygen Delivery Method Room Air 09/23/24 15:30 BMI result Body Mass Index 29.7 General: awake, alert, oriented. Answers questions appropriately. Fully engaged in examination. Skin: warm, dry, intact HEENT: Normocephalic. Hearing intact. Cardiac: External chest normal in appearance. Respiratory: No cough, audible wheezing or stridor. Abdomen: without gross distension. MS: No obvious swelling or deformities. Able to transition from sit to stand unassisted. Ambulates with bilaterally normal heel strike and toe off Cervical Spine: Visible inspection without gross abnormality Moderate tenderness throughout bilateral upper trapezius muscles. Tender to palpation midline cervical vertebrae and cervical paraspinal muscles decreased cervical ROM in all planes Spurling compression test positive BUE strength 5/5 Elvey's tension test positive on the left, negative on the right. Neurological: Oriented to person, place, time and situation. Thought process intact. No gait abnormalities appreciated. Psychiatric: Appropriate mood and affect. Good judgment and insight. Results Reviewed Results Reviewed: Assessment & Plan Assessment & Plan (1) Post laminectomy syndrome: Code(s): M96.1 - Postlaminectomy syndrome, not elsewhere classified Category: Medical (2) Cervical spondylolysis: Code(s): M43.02 - Spondylolysis, cervical region Category: Medical (3) Myofascial neck pain: Code(s): M54.2 - Cervicalgia Category: Medical Plan I will order a cervical spine MRI with contrast to assess the structural integrity post-surgery. An open MRI is preferred due to the patient's procedural anxiety. I will prescribe a low-dose muscle relaxant to manage muscle tightness, advising the patient to try it during non-work hours initially. The patient should follow-up post-MRI to evaluate results and consider a potential neurosurgical consultation or alternative treatments (VITALY) based on findings. I discussed with the patient the likely chronicity of the neck pain, which may be related to unresolved cervical radiculopathy despite previous surgery. We reviewed the option of an open MRI to alleviate procedural anxiety and the potential therapeutic benefits of trying a different muscle relaxant. I explained that the MRI would help determine if further surgical intervention is required or if alternative pain management strategies should be pursued. The patient agreed to this approach, understanding the risks and benefits. We discussed follow-up plans contingent upon MRI results and emphasized the need for reassessment and possible multidisciplinary involvement to optimize outcomes. Patient was informed and verbally consented to the use of an ambient scribe for clinic note documentation during this visit. Orders: Orders MR cervical spine wo/w con Today M43.02 - Spondylolysis, cervical region, M96.1 - Postlaminectomy syndrome, not elsewhere classified Medications: New methocarbamol Discontinue use of Cyclobenzaprine No driving while taking this medication. Do no take with alcohol or other [employer] Depressants 500 mg PO TID PRN 90 tabs 1RF muscle spasm diclofenac sodium 3% apply to most painful area twice daily as needed for pain 1 appl topical BID 100 grams 0RF Patient Instructions: - Schedule an open MRI for the cervical spine. - Try the new muscle relaxant initially during non-work hours to assess for side effects. - Follow up with me after the MRI to discuss results and ongoing treatment options. - Continue any home exercises as tolerated and avoid activities that exacerbate pain. - Notify me of any significant changes or concerns with medication use or pain levels. Coding Level of Care Code New Pt Level 4 (76815) Complex EM visit Add On G2211 Diagnoses Post laminectomy syndrome M96.1 Cervical spondylolysis M43.02 Myofascial neck pain M54.2
--- OUTSIDE RECORDS SUMMARY | 2024-09-23 15:18 | XMS_ITS | Encounter Summary ---
Author Organization [employer] Address [address] [place] [address] Care Team Providers Care News Librarian Name Role Phone Delmis Allen MD Primary Care Provider [phone] Encounter Details Date Type Department Care Team ([facility] Contact Info) Description 12/22/2022 [facility] [address] [place], [place] [phone] Delmis Allen MD [address] [place], [place] [phone] Social History Tobacco Use Types Packs/Day Years Used Date Smoking Tobacco: Never Passive Smoke Exposure: Never Smokeless Tobacco: Never Alcohol Use Standard Drinks/Week Comments Never 0 (1 standard drink = 0.6 oz pur e alcohol) Depression Answer Date Recorded Patient Health Questionnaire-9 Score 0 07/31/2022 Depression Answer Date Recorded Patient Health Questionnaire-2 Score 0 07/31/2022 Sex and Gender Information Value Date Recorded Sex Assigned at Male 03/17/2022 10:22 AM EDT Legal Sex Male 10:22 AM EDT Gender Identity Male 03/17/2022 10:22 AM EDT Sexual Orientation Straight 03/17/2022 10 :22 AM EDT documented as of this encounter Plan of Treatment Upcoming Encounters Date Type Department Care Team ([facility] Contact Info) Description 12/13/2024 9:15 AM EDT Office Visit [facility] MED & PEDS [address] [place], [place] [phone] Delmis Allen MD [address] [place], [place] [phone] documented as of this encounter Visit Diagnoses Not on filedocumented in this encounter Additional Health Concerns Assessment Noted Time PHQ-9 Depression Total Score: 0 08/01/19 23 4:23 PM EDT documented as of this encounter Care Teams News Librarian Relationship Specialty Start Date End Date Delmis Allen MD [address] [place] [address] PCP - General Internal Medicine 03/14/21 documented as of this encounter
--- OUTSIDE RECORDS SUMMARY | 2024-09-23 15:18 | XMS_ITS | Encounter Summary ---
Author Organization [employer] Address [address] [facility] 7 [place] [address] Care Team Providers Care Casting Chipper Name Role Phone Delmis Allen MD Primary Care Provider [phone] Reason for Visit * Reason Comments Med Refill Encounter Details Date Type Department Care Team ([facility] st Contact Info) Description 08/24/2024 Refill [facility] MEDICINE [address] [place] [address] Delmis Allen MD [address] [place] [address] Moderate persistent asthma without complication Social History Tobacco Use Types Packs/Day Years Used Date Smoking Tobacco: Never Passive Smoke Exposure: Never Smokeless Tobacco: Never Alcohol Use Standard Drinks/Week Comments Never 0 (1 standard drink = 0.6 oz pur e alcohol) Depression Answer Date Recorded Patient Health Questionnaire-9 Score 0 07/31/2022 Housing Stability Answer Date Recorded What is your housing situation today? I have jay frank 03/02/[address] you li ve. Do you have problems with any of the following? None of the above 03/02/2023 Food Insecurity Answer Date Recorded Within the past 12 months, y ou worried that your food would run out before you got money to buy more: Never True 03/02/2023 Within the past 12 months,th e food you bought just didn't last and you didn't have enough money to get more: Never True Transportation Answer Date Recorded In the past 12 months, has l ack of transportation kept you from medical appts, meetings, work or from getting things needed for daily living? No 03/02/2023 Utilities Answer Date Recorded In the past 12 months, has t he electric, gas, oil or water company threatened to shut off services in your home? No 03/02/2023 Depression Answer Date Recorded Patient Health Questionnaire-2 Score 0 07/31/2022 Sex and Gender Information Value Date Recorded Sex Assigned at Male 03/17/2022 10:22 AM EDT Legal Sex Male 10:22 AM EDT Gender Identity Male 03/17/2022 10:22 AM EDT Sexual Orientation Straight 03/17/2022 10 :22 AM EDT documented as of this encounter Plan of Treatment Upcoming Encounters Date Type Department Care Team (Late st Contact Info) Description 12/13/2024 9:15 AM EDT Office Visit [facility] MED & PEDS [address] [place] [address] Delmis Allen MD [address] [place] [address] documented as of this encounter Visit Diagnoses Diagnosis Moderate persistent asthma without complication documented in this encounter Additional Health Concerns Assessment Noted Time PHQ-9 Depression Total Score: 0 08/01/19 23 4:23 PM EDT documented as of this encounter Care Teams Casting Chipper Relationship Specialty Start Date End Date Delmis Allen MD [address] [place] [address] PCP - General Internal Medicine 03/14/21 documented as of this encounter
--- OUTSIDE RECORDS SUMMARY | 2024-09-23 15:18 | XMS_ITS | Encounter Summary ---
Author Organization [employer] Address [address] [place] [address] Care Team Providers Care Flight Attendant Ramp Name Role Phone Delmis Allen MD Primary Care Provider [phone] Encounter Details Date Type Department Care Team ([facility] Contact Info) Description 10/09/2022 Orders Only [facility]C MED & PEDS [address] [place], [place] [phone] Delmis Allen MD [address] [place] [address] Social History Tobacco Use Types Packs/Day Years [...] Upcoming Encounters Date Type Department Care Team ([facility] Contact Info) Description 12/13/2024 9:15 AM EDT Office Visit [facility] MED & PEDS [address] [place], [place] [phone] Delmis Allen MD [address] [place], [place] [phone] documented as of this encounter Visit Diagnoses Not on filedocumented in this encounter Additional Health Concerns Assessment Noted Time PHQ-9 Depression Total Score: 0 08/01/19 23 4:23 PM EDT documented as of this encounter Care Teams Flight Attendant Ramp Relationship Specialty Start Date End Date Delmis Allen MD [address] [place] [address] [place] [address] PCP - General Internal Medicine 03/14/21 documented as of this encounter
--- OUTSIDE RECORDS SUMMARY | 2024-09-23 15:18 | XMS_ITS | Encounter Summary ---
Author Organization [employer] Address [address] [facility] 7 [place] [address] Care Team Providers Care Boot And Shoe Laborer Name Role Phone Delmis Allen MD Primary Care Provider [phone] Reason for Visit * Reason Onset Date Comments Med Refill 08/25/2024 Encounter Details Date Type Department Care Team ([facility] st Contact Info) Description 08/25/2024 Refill [facility] MED[facility]INE [address] [place] [address] Delmis Allen MD [address] [place] [address] Moderate persistent asthma without complication Social History [...] AM EDT documented as of this encounter Miscellaneous Notes * Telephone Encounter - Renetta Cosby - 08/25/2024 11:51 AM EDT TC from pt requesting medication refill. Medications needing refill : albuterol 108 (90 Base) MCG/ACT inhaler [facility] be sent to: [facility] documented in this encounter Plan of Treatment Upcoming Encounters Date Type Department Care Team (Late st Contact Info) Description 12/13/2024 9:15 AM EDT Office Visit [facility] MED & PEDS [address] [place] [address] Delmis Allen MD [address] [place] [address] documented as of this encounter Visit Diagnoses Diagnosis Moderate persistent asthma without complication documented in this encounter Additional Health Concerns Assessment Noted Time PHQ-9 Depression Total Score: 0 08/01/19 23 4:23 PM EDT documented as of this encounter Care Teams Boot And Shoe Laborer Relationship Specialty Start Date End Date Delmis Allen MD [address] [place] [address] PCP - General Internal Medicine 03/14/21 documented as of this encounter
--- OUTSIDE RECORDS SUMMARY | 2024-09-23 15:18 | XMS_ITS | Clinical Summary ---
Author Organization [facility] Address [address] [place] [address] Care Team Providers Care Box Bender Name Role Phone Acosta Desai Primary Care Provider [phone] Medications Medication Sig Dispensed Refills Start Date End Date Status raNITIdine (ZANTAC) 150 MG tablet Take 150 mg by mouth 2 (two) times a day. 0 Active albuterol (PROVENTIL HFA;VENTOLIN HFA) 108 (90 Base) MCG/ACT inhaler Inhale 2 puffs into the lungs every 6 (six) hours as needed for wheezing. 0 Active butalbital-acetaminop hen-caffeine (FIORICET, ESGIC) 50-325-40 MG per tablet Take 1 tablet by mouth every 6 (six) hours. 30 tablet 0 01/21/2018 Active methocarbamol (ROBAXIN) 500 MG tablet Take 1 tablet (500 mg total) by mouth 3 (three) times a day. 21 tablet 0 01/21/2018 Active Active Problems Problem Noted Date Diagnosed Date Headache 01/17/2018 Meningitis 01/17/2018 History of asthma 01/17/2018 Social History Tobacco Use Types Packs/Day Years Used Date Smoking Tobacco: Never Smokeless Tobacco: Never Alcohol Use Standard Drinks/Week Comments No 0 (1 standard drink = 0.6 oz pur e alcohol) Sex and Gender Information Value Date Recorded Sex Assigned at Not on file Gender Identity Not on file Sexual Orientation Not on file Job Start Date Occupation Industry Not on file Not on file Not on file Last Filed Vital Signs Vital Sign Reading Time Taken Comments Blood Pressure 153/89 01/21/2018 6:26 AM EDT Pulse 65 01/21/2018 8:39 AM EDT Temperature 37.1 ??C (98.8 ??F) 01/21/2018 6:26 AM ED T Respiratory Rate 19 01/21/2018 6:26 AM EDT Oxygen Saturation 98% 01/21/2018 6:26 AM EDT Inhaled Oxygen Concentration - - Weight 73.1 kg (161 lb 1.6 oz) 01/17/2018 10:36 PM EDT Height 157.5 cm (5' 2 ) 01/17/2018 10:36 PM EDT Body Mass Index 29.47 01/17/2018 10:36 PM EDT Plan of Treatment Health Maintenance Due Date Last Done Comments Hepatitis B Vaccines (1 of 3 - 3-dose series) 1974 Hepatitis C Screening 1974 COVID-19 Vaccine (#1) 1974 Depression Screening 1986 Preventative Health Evaluation 1992 DTap / Tdap / Td (1 - Tdap) 1993 Colon Cancer Screening (Colonoscopy) 2019 Influenza Vaccine (#1) 2024 Shingrix-Zoster Vaccine (1 of 2) 2024 Pneumococcal Vaccine Aged Out No long er eligible based on patient's age to complete this topic RSV Ped < 20 months Aged Out No longe r eligible based on patient's age to complete this topic Advance Directives For more information, please contact: [phone] Latest Code Status on File Code Status Date Activated Date Inactivated Comments Full Code 01/17/2018 8:57 PM 01/21/2018 5:38 PM This co de status was ascertained in the following way: discussion with patient . Care Teams Box Bender Relationship Specialty Start Date End Date Acosta Desai [address] [facility] [place] [address] PCP - General Family Medicine 01/17/18
--- OUTSIDE RECORDS SUMMARY | 2024-09-23 15:18 | XMS_ITS | Encounter Summary ---
Author Organization [employer] Address [address] [facility] [address] [place] [address] Care Team Providers Care Concrete Panel Installer Name Role Phone Delmis Allen MD Primary Care Provider [phone] Encounter Details Date Type Department Care Team ([facility] st Contact Info) Description 08/25/2024 Orders Only [facility] CHC MED & PEDS [address] [place] [address] Delmis Allen MD [address] [place] [address] Moderate persistent asthma without complication Social History [...] Description 12/13/2024 9:15 AM EDT Office Visit [facility] MED & PEDS [address] [place] [address] Delmis Allen MD [address] [place] [address] documented as of this encounter Visit Diagnoses Diagnosis Moderate persistent asthma without complication documented in this encounter Additional Health Concerns Assessment Noted Time PHQ-9 Depression Total Score: 0 08/01/19 23 4:23 PM EDT documented as of this encounter Care Teams Concrete Panel Installer Relationship Specialty Start Date End Date Delmis Allen MD [address] [place] [address] PCP - General Internal Medicine 03/14/21 documented as of this encounter
--- OUTSIDE RECORDS SUMMARY | 2024-09-23 15:18 | XMS_ITS | Referral Summary ---
Author Organization [facility] Address [address] [place] [address] Care Team Providers Care Water Service Dispatcher Name Role Phone Delmis Allen Primary Care Provider [phone] Allergies Active Allergy Reactions Criticality Noted Date Comments Gabapentin Rash Low 02/27/2022 Morphine Vomiting,Hives Low 05/23/2021 Other reaction(s): Vomiting Oxycodone-Acetaminophen Unknown Low 05/23/2021 Shellfish Containing Products Hives 03/09/2023 Other reaction(s): Unknown Medications albuterol (PROAIR HFA,VENTOLIN HFA) 90 mcg inhaler Inhale 2 puffs by mouth every 6 hours as needed. Active Wixela Inhub 250-50 mcg/dose inhaler 1 Active omeprazole 20 mg tablet,delayed release (DR/EC) Take 20 mg by mouth in the morning. 4 Active ketoconazole (NIZORAL) 2% shampoo Apply topically to the affected area. psoriasis 3 Active fluticasone propion-salmete roL (ADVAIR DISKUS) 250-50 mcg inhaler Inhale 1 puff by mouth 2 times daily. 4 Active multivitamin (THERAGRAN) tablet Take 1 tablet by mouth once a day. Active vitamin K2 40 mcg tablet Take by mouth. Acti ve cephalexin (KEFLEX) 500 mg capsule Take 1 capsule (500 mg total) by mouth 3 times a day. 15 capsule 4 Active Active Problems Problem Noted Date Diagnosed Date Chronic neck pain 04/17/2022 Multiple perforations of left tympanic membrane 05/23/2021 Meningitis 01/17/2018 Hiatal hernia 11/12/2016 Difficulty swallowing solids 11/10/2016 Immunizations Immunization Administration Dates Next Due Covid-19, Pfizer, mRNA, Wilkinson valent, PF 30 mcg/0.3 mL dose (for ages 12 and older) 12/02/2020,11/11/2020 Social History Tobacco Use Types Packs/Day Years Used Date Smoking Tobacco: Never Smokeless Tobacco: Never Tobacco Cessation:Counseling Given: Not Answered Alcohol Use Standard Drinks/Week Comments Not Currently 0 (1 standard drink = 0.6 oz pur e alcohol) Sex and Gender Information Value Date Recorded Sex Assigned at Male 09/11/2023 1:02 PM EDT Legal Sex Male 4:35 PM EST Gender Identity Male 09/11/2023 1:02 PM EDT Sexual Orientation Not on file Last Filed Vital Signs Vital Sign Reading Time Taken Comments Blood Pressure 130/74 12/15/2023 1:30 PM EDT Pulse 74 12/15/2023 1:30 PM EDT Temperature 35.9 ??C (96.7 ??F) 12/15/2023 1:15 PM ED T Respiratory Rate 17 12/15/2023 1:30 PM EDT Oxygen Saturation 99% 12/15/2023 1:30 PM EDT Inhaled Oxygen Concentration - - Weight 76.4 kg (168 lb 6.9 oz) 12/15/2023 6:34 A M EDT Height 157.5 cm (5' 2 ) 12/15/2023 6:34 AM EDT Body Mass Index 30.81 12/15/2023 6:34 AM EDT Plan of Treatment Not on file [facility] Advance Directives * Presumed Full Code (Latest Code Status on File) Date Activated Date Inactivated Comments 12/15/2023 7:01 AM 12/15/2023 4:30 PM Care Teams Water Service Dispatcher Relationship Specialty Start Date End Date Delmis Allen [address] [place] [address] PCP - General Internal Medicine 05/03/21
--- OUTSIDE RECORDS SUMMARY | 2024-09-23 15:18 | XMS_ITS | Encounter Summary ---
Author Organization [employer] Address [address] [facility] [address] [place] [address] Care Team Providers Care Blood Donor Recruiter Supervisor Name Role Phone Delmis Allen MD Primary Care Provider [phone] Encounter Details Date Type Department Care Team ([facility] st Contact Info) Description 08/30/2024 Orders Only [facility] [address] [place], [place] [id number] Provider, MD Isabel Social History Tobacco Use Types Packs/Day Years Used Date Smoking Tobacco: Never Passive Smoke Exposure: Never Smokeless Tobacco: Never Alcohol Use Standard Drinks/Week Comments Never 0 (1 standard drink = 0.6 oz pur e alcohol) Depression Answer Date Recorded Patient Health Questionnaire-9 Score 0 07/31/2022 Housing Stability Answer Date Recorded What is your housing situation today? I have jayalexys frank 03/02/[address] you [...] 9:15 AM EDT Office Visit [facility] PEDS [address] [place] [address] Delmis Allen MD [address] [place] [address] documented as of this encounter Procedures Procedure Name Priority Date/Time Associated Diagnosis Comments ECG 12-LEAD Routine 08/28/2024 1:38 PM EDT ECG 12-LEAD Routine 08/28/2024 1:36 PM EDT documented in this encounter Results * ECG 12 lead (08/28/2024 1:38 PM EDT) us Historical Provider ECG ORDERABLES Final Res ult * ECG 12 lead (08/28/2024 1:36 PM EDT) us Historical Provider ECG ORDERABLES Final Res ult documented in this encounter Visit Diagnoses Not on filedocumented in this encounter Additional Health Concerns Assessment Noted Time PHQ-9 Depression Total Score: 0 08/01/19 23 4:23 PM EDT documented as of this encounter Care Teams Blood Donor Recruiter Supervisor Relationship Specialty Start Date End Date Delmis Allen MD [address] [place] [address] PCP - General Internal Medicine 03/14/21 documented as of this encounter
--- OUTSIDE RECORDS SUMMARY | 2024-09-23 15:18 | XMS_ITS | Encounter Summary ---
Author Organization [employer] Address [address] [facility] [address] [place] [address] Care Team Providers Care Sanitizer Name Role Phone Delmis Allen MD Primary Care Provider [phone] Reason for Visit * Reason Comments Med Change Request Encounter Details Date Type Department Care Team ([facility] Contact Info) Description 05/13/2023 Refill C [facility] [address] [place] [address] Delmis Allen MD [address] [place] [address] Moderate persistent asthma without complication Social History [...] Upcoming Encounters Date Type Department Care Team ([facility] st Contact Info) Description 12/13/2024 9:15 AM EDT Office Visit [facility] MED [facility] PEDS [address] [place] [address] Delmis Allen MD [address] [place] [address] documented as of this encounter Visit Diagnoses Diagnosis Moderate persistent asthma without complication documented in this encounter Additional Health Concerns Assessment Noted Time PHQ-9 Depression Total Score: 0 08/01/19 23 4:23 PM EDT documented as of this encounter Care Teams Sanitizer Relationship Specialty Start Date End Date Delmis Allen MD [address] [place] [address] PCP - General Internal Medicine 03/14/21 documented as of this encounter
--- OUTSIDE RECORDS SUMMARY | 2024-09-23 15:18 | XMS_ITS | Encounter Summary ---
Author Organization [employer] Address [address] [facility] [address] [place] [address] Care Team Providers Care Wrap Turner Name Role Phone Delmis Allen MD Primary Care Provider [phone] Encounter Details Date Type Department Care Team ([facility] Contact Info) Description 05/04/2023 Orders Only [facility] [address] [place] [address] Delmis Allen MD [address] [place] [address] Social History Tobacco Use Types Packs/Day Years [...] 9:15 AM EDT Office Visit [facility] [address] [place] [address] Delmis Allen MD [address] [place] [address] documented as of this encounter Visit Diagnoses Not on filedocumented in this encounter Additional Health Concerns Assessment Noted Time PHQ-9 Depression Total Score: 0 08/01/19 23 4:23 PM EDT documented as of this encounter Care Teams Wrap Turner Relationship Specialty Start Date End Date Delmis Allen MD [address] [place] [address] PCP - General Internal Medicine 03/14/21 documented as of this encounter
--- OUTSIDE RECORDS SUMMARY | 2024-09-23 15:18 | XMS_ITS | Clinical Summary ---
Author Organization Patient Business Ser [facility] Address [address] [place] [address] Care Team Providers Care Car Designer Name Role Phone Delmis Allen MD Primary Care Provider [phone] Allergies Active Allergy Reactions Criticality Noted Date Comments Gabapentin Rash Low 06/28/2021 Upset stomach Morphine Hives,Nausea And Vomiting Low 05/23/2021 Other reaction(s): Vomiting Other 06/30/2022 Other Reaction(s): OTHER Oxycodone-Acetaminophe n Nausea And Vomiting,Unknown Low 05/23/2021 Shellfish Containing Products 03/09/2023 Other reaction(s): Unknown Medications methocarbamoL (ROBAXIN) 750 mg tablet Take 1 tablet (750 mg total) by mouth 4 (four) times a day. 12 each 05/29/2024 Active Active Problems No known active problems Encounters Date Type Department Care Team Description 09/03/2024 10:34 AM EDT - 09/03/2024 11:59 PM EDT Hospital Encounter [facility] Xray [address] [place] [id number] Cervicalgia; Other chronic pain; Paresthesia of skin; Other specified postprocedural states Discharge Disposition: Home or Self Care 08/28/2024 11:56 PM EDT - 08/29/2024 2:42 AM EDT Emergency [facility] Emergency [address] [place] [address] Boyd Juan MD Chest wall pain (Primary Dx) Discharge Disposition: Home or Self Care from Last 3 Months Surgical History Surgery Date Site/Laterality Comments NECK SURGERY 12/22/2022 PROCEDURE: HISTORICAL NECK SURGERY; COMMENT: C4-5 Artificial disc replacement Medical History Medical History Date Comments Seborrheic dermatitis DX:Seborrh eic dermatitis Difficulty swallowing solids DX: Difficulty swallowing solids Hiatal hernia DX:Hiatal hernia Chronic neck pain DX:Chronic nec k pain Mild intermittent asthma, uncomplicated DX:Mild intermittent asthma, uncomplicated Acute otitis externa of left ear, unspecified type DX:Acute otitis externa of l eft ear, unspecified type Social History Tobacco Use Types Packs/Day Years Used Date Smoking Tobacco: Never Smokeless Tobacco: Never Alcohol Use Standard Drinks/Week Comments Yes 0 (1 standard drink = 0.6 oz pur e alcohol) Sex and Gender Information Value Date Recorded Sex Assigned at Male 08/15/2022 1:18 PM EDT Legal Sex Male 6:21 AM EDT Gender Identity Male 08/15/2022 1:18 PM EDT Sexual Orientation Choose not to disclose 2024 12:38 AM EDT Obstetrics History Last Filed Vital Signs Vital Sign Reading Time Taken Comments Blood Pressure 132/79 08/29/2024 2:42 AM EDT Pulse 69 08/29/2024 2:42 AM EDT Temperature 36.8 ??C (98.2 ??F) 08/29/2024 2:42 AM ED T Respiratory Rate 18 08/29/2024 2:42 AM EDT Oxygen Saturation 97% 08/29/2024 2:42 AM EDT Inhaled Oxygen Concentration - - Weight 72.6 kg (160 lb) 08/28/2024 7:15 PM EDT Height 157.5 cm (5' 2 ) 08/28/2024 7:15 PM EDT Body Mass Index 29.26 08/28/2024 7:15 PM EDT Plan of Treatment Health Maintenance Due Date Last Done Comments Hepatitis B Vaccines (1 of 3 - 19+ 3-dose series) 1993 Pneumococcal Vaccine: 50+ Years (1 of 2 - PCV) 1993 Pneumococcal Vaccine: Pediatrics (0 to 5 Years) and At-Risk Patients (6 to 64 Years) (1 of 2 - PCV) 1993 Cholesterol Screening (Lipid Panel) 10/02/2021 Colorectal Cancer Screening: Colonoscopy 10/02/2021 HIV Screening 10/02/2021 Hepatitis C Screening 10/02/2021 Social Influencers of Health Screening 10/02/2021 Depression Screening 08/01/2023 07/31/2022 COVID-19 Vaccine (3 - 2023-2 5 season) 2024 12/02/2020, 11/11/2020 Zoster Vaccines (1 of 2) 2024 Influenza Vaccine (Season Ended) 2025 DTaP,Tdap,and Td Vaccines (2 - Td or Tdap) 05/19/2025 05/19/2015 HIB Vaccines Aged Out No longer eligi ble based on patient's age to complete this topic HPV Vaccines Aged Out No longer eligi ble based on patient's age to complete this topic Hepatitis A Vaccines Aged Out No long er eligible based on patient's age to complete this topic IPV Vaccines Aged Out No longer eligi ble based on patient's age to complete this topic MMR Vaccines Aged Out No longer eligi ble based on patient's age to complete this topic Meningococcal ACWY Vaccine Aged Out N o longer eligible based on patient's age to complete this topic Meningococcal B Vaccine Aged Out No l onger eligible based on patient's age to complete this topic RSV Immunization Patients Under 20 months Aged Out No longer eligible b ased on patient's age to complete this topic Varicella Vaccines Aged Out No longer eligible based on patient's age to complete this topic Procedures Procedure Name Priority Date/Time Associated Diagnosis Comments XR CERVICAL SPINE 4-5 VIEWS Routine 09/03/2024 10:47 AM EDT Cervicalgia Other chronic pain Paresthesia of skin Other specified postprocedural states ECG ANNOTATED 08/30/2024 TROPONIN I HIGH SENSITIVITY STAT 08/28/2024 10:53 PM EDT ECG 12-LEAD STAT 08/28/2024 10:46 PM EDT XR CHEST 2 VIEWS STAT 08/28/2024 9:20 PM EDT CBC WITH AUTO DIFFERENTIAL STAT 08/28/2024 7:29 PM EDT MAGNESIUM STAT 08/28/2024 7:29 PM EDT LIPASE STAT 08/28/2024 7:29 PM EDT COMPREHENSIVE METABOLIC PANEL STAT 08/28/2024 7:29 PM EDT CBC AND DIFFERENTIAL STAT 08/28/2024 7:29 PM EDT TROPONIN I HIGH SENSITIVITY STAT 08/28/2024 7:29 PM EDT ECG 12-LEAD STAT 08/28/2024 7:12 PM EDT from Last 3 Months Results * XR Cervical Spine 4-5 Views (09/03/2024 10:47 AM EDT) Anatomical Region Laterality Modality Spine, C-spine Radiographic Melodie ging 09/05/2024 8:39 AM EDT Impressions 09/05/2024 8:46 AM EDT Previous discectomy with spacer placement at C4/C5. There is some degenerative change with bilateral foraminal narrowing -------- FINAL REPORT -------- Dictated By: Steven Jeffery Dictated Date: 09/05/2024 08:39 ET Assigned Physician: Steven Jeffery Reviewed and Electronically Signed By: Steven Jeffery Signed Date: 09/05/2024 08:46 ET Workstation ID: [id number] Transcribed By: Self Edit Transcribed Date: 09/05/2024 08:39 ET Narrative 09/05/2024 8:46 AM EDT EXAMINATION: CERVICAL SPINE CLINICAL INFORMATION: Neck pain. COMPARISON: Intraoperative lateral view of the cervical spine 12/22/22 TECHNIQUE: 5 views of cervical spine FINDINGS: There has been discectomy with placement of a spacer at C4/C5. There is straightening of the expected lordosis in the mid cervical spine. No acute fracture. No subluxation. No suspicious focal lesion. No abnormal lucency around the disc spacer/surrounding bone. There are osteophytes anteriorly at C3/C4 and C5/C6. The hardware does not project into the spinal canal. There is some uncovertebral joint spurring greatest on the left at C4/C5 and C5/C6. There is at least moderate bony foraminal narrowing bilaterally at C6/C7. There is mild to moderate bony foraminal narrowing on the left at C4/C5 and on the right at C4/C5 and C5/C6. There is minor apical pleural thickening in the right apex. Procedure Note Steven Jeffery MD - 09/05/2024 EXAMINATION: CERVICAL SPINE CLINICAL INFORMATION: Neck pain. COMPARISON: Intraoperative lateral view of the cervical spine 12/22/22 TECHNIQUE: 5 views of cervical spine FINDINGS: There has been discectomy with placement of a spacer at C4/C5. There is straightening of the expected lordosis in the mid cervicalspine. No acute fracture. No subluxation. No suspicious focal lesion. No abnormal lucency around the disc spacer/surrounding bone. There are osteophytes anteriorly at C3/C4 and C5/C6. The hardware does not project into the spinal canal. There is some uncovertebral joint spurring greatest on the left at C4/C5and C5/C6. There is at least moderate bony foraminal narrowing bilaterally at C6/C7.There is mild to moderate bony foraminal narrowing on the left at C4/C5and on the right at C4/C5 and C5/C6. There is minor apical pleural thickening in the right apex. IMPRESSION: Previous discectomy with spacer placement at C4/C5. There is somedegenerative change with bilateral foraminal narrowing -------- FINAL REPORT -------- Dictated By: Steven Jeffery Dictated Date: 09/05/2024 08:39 ET Assigned Physician: Steven Jeffery Reviewed and Electronically Signed By: Steven Jeffery Signed Date: 09/05/2024 08:46 ET Workstation ID: [id number] Transcribed By: Self Edit Transcribed Date: 09/05/2024 08:39 ET us Susan Youssef MD IMG XR PROCEDURES Final Resul t * ECG-Annotated (08/30/2024) us Provider Onbase MD ECG ORDERABLES Final Result * Troponin I high sensitivity (08/28/2024 10:53 PM EDT) Only the most recent of2 resultswithin the time period is included. [facility] High Sensitivity Troponin I 5 <=79 ng/L LAB CHEMISTRY METHOD 08/28/2024 11:[address] [facility] Blood Venous blood specimen / Unknown Venipuncture / Unknown 08/28/2024 10:53 PM EDT 08/28/2024 10:[address] [facility] - 08/28/2024 11:34 PM EDT High levels of biotin in samples may falsely decrease hsTroponin values. ??Use caution when interpreting hsTroponin results in patients taking biotin who exhibit renal impairment (eGFR <60) or in patients taking more than 20 mg/day of biotin. Vadim Sauceda MD LAB BLOOD ORDERABLES Final Resu lt [facility] [address] [place] [address], * ECG 12 lead (08/28/2024 10:46 PM EDT) Only the most recent of2 resultswithin the time period is included. [facility] Ventricular Rate ECG 55 BPM GEMUSE Atrial Rate 55 BPM GEMUSE P-R Interval 158 ms GEMUSE QRS Duration 94 ms GEMUSE Q-T Interval 412 ms GEMUSE QTc 394 ms GEMUSE P Wave Latimer 53 degrees GEMUSE R Latimer 38 degrees GEMUSE T Latimer 30 degrees GEMUSE ECG Interpretation Sinus bradycardia with Premature atrial complexes Otherwise normal ECG When compared with ECG of 28-AUG-2024 19:12, (unconfirmed) No significant change was found Confirmed by Juanita KING YUFENG ([id number]) on 08/29/2024 5:15:41 PM GEMUSE 08/28/2024 10:4 6 PM EDT 08/29/2024 5:15 PM EDT us Vadim Sauceda MD ECG ORDERABLES Final Result GEMUSE * XR Chest 2 Views (08/28/2024 9:20 PM EDT) Anatomical Region Laterality Modality Body Radiographic Melodie ging 08/29/2024 8:49 AM EDT Impressions 08/29/2024 8:49 AM EDT Normal chest radiographs. -------- FINAL REPORT -------- Dictated By: Sam Sainz Dictated Date: 08/29/2024 08:49 ET Assigned Physician: Sam Sainz Reviewed and Electronically Signed By: Sam Sainz Signed Date: 08/29/2024 08:49 ET Workstation ID: [id number] Transcribed By: Self Edit Transcribed Date: 08/29/2024 08:49 ET Narrative 08/29/2024 8:49 AM EDT PROCEDURE: PA and lateral radiographs of the chest. HISTORY: chest pain. COMPARISON: 06/28/2023. FINDINGS: The heart, mediastinum, lungs, pleural spaces, and bony thorax are normal. Procedure Note Sam Sainz MD - 08/29/2024 PROCEDURE: PA and lateral radiographs of the chest. HISTORY: chest pain. COMPARISON: 06/28/2023. FINDINGS: The heart, mediastinum, lungs, pleural spaces, and bony thorax arenormal. IMPRESSION: Normal chest radiographs. -------- FINAL REPORT -------- Dictated By: Sam Sainz Dictated Date: 08/29/2024 08:49 ET Assigned Physician: Sam Sainz Reviewed and Electronically Signed By: Sam Sainz Signed Date: 08/29/2024 08:49 ET Workstation ID: [id number] Transcribed By: Self Edit Transcribed Date: 08/29/2024 08:49 ET us Vadim Sauceda MD IMG XR PROCEDURES Final Result * (ABNORMAL) CBC auto differential (08/28/2024 7:29 PM EDT) [facility] WBC 8.7 4.8 - 10.8 K/mcL LAB HEMETOLOGY METHOD 08/28/2024 7:[address] [facility] RBC 5.50 4.50 - 5.50 M/mcL LAB HEMETOLOGY METHOD 08/28/2024 7:[address] [facility] Hemoglobin 14.6 13.5 - 17.5 g/dL LAB HEMETOLOGY METHOD 08/28/2024 7:[address] [facility] Hematocrit 45.4 42.0 - 54.0 % LAB HEMETOLOGY METHOD 08/28/2024 7:[address] [facility] MCV 83.3 79.0 - 98.0 FL LAB HEMETOLOGY METHOD 08/28/2024 7:[address] [facility] MCH 26.8(L) 27.0 - 32.0 pcg LAB HEMETOLOGY METHOD 08/28/2024 7:[address] [facility] MCHC 32.2 32.0 - 37.0 g/dL LAB HEMETOLOGY METHOD 08/28/2024 7:[address] [facility] RDW 12.2 11.0 - 15.0 % LAB HEMETOLOGY METHOD 08/28/2024 7:[address] [facility] Platelets 241 130 - 400 K/mcL LAB HEMETOLOGY METHOD 08/28/2024 7:[address] [facility] MPV 12.0(H) 7.0 - 11.0 FL LAB HEMETOLOGY METHOD 08/28/2024 7:[address] [facility] NRBC 0.0 <1.0 % LAB HEMETOLOGY METHOD 08/28/2024 7:[address] [facility] NRBC Absolute 0.00 <0.10 K/mcL LAB HEMETOLOGY METHOD 08/28/2024 7:[address] [facility] Neutrophils Relative 45.8 % LAB HEMETOLOGY [facility] Lymphocytes Relative 41.1 % LAB HEMETOLOGY METHOD 08/28/2024 7:[address] [facility] Monocytes Relative 7.0 % LAB HEMETOLOGY METHOD 08/28/2024 7:[address] [facility] Eosinophils Relative 5.0 % LAB HEMETOLOGY METHOD 08/28[facility]2024 7[facility] Basophils Relative 0.6 % LAB HEMETOLOGY METHOD 08/28/2024 7:[address] [facility] Immature Granulocytes Relative 0.5 % LAB HEMETOLOGY METHOD 08/28/2024 7:[address] [facility] Neutrophils Absolute 3.98 1.50 - 7.00 K/mcL LAB HEMETOLOGY METHOD 08/28/2024 7:[address] [facility] Lymphocytes Absolute 3.57 1.00 - 5.00 K/mcL LAB HEMETOLOGY METHOD 08/28/2024 7:[address] [facility] Monocytes Absolute 0.61 0.20 - 1.00 K/mcL LAB HEMETOLOGY METHOD 08/28/2024 7:[address] [facility] Eosinophils Absolute 0.43 0.00 - 0.50 K/mcL LAB HEMETOLOGY METHOD 08/28/2024 7:[facility] Basophils Absolute 0.05 0.00 - 0.20 K/mcL LAB HEMETOLOGY METHOD 08/28/2024 7:[facility] Immature Granulocytes Absolute 0.04(H) 0.00 - 0.03 K/mcL LAB HEMETOLOGY METHOD 08/28/2024 7:[address] [facility] Blood Venous blood specimen / Unknown Venipuncture / Unknown 08/28/2024 7:29 PM EDT 08/28/2024 7:47 PM EDT us Vadim Sauceda MD LAB BLOOD ORDERABLES Final Resu lt Performing Organization Address [facility]/ZIP Co de Phone Number [facility] [address] [place] [address], [place] [phone] * Magnesium (08/28/2024 7:29 PM EDT) Pathologist [facility] Magnesium 2.1 1.9 - 2.6 mg/dL LAB CHEMISTRY METHOD 08/28/2024 8:[address] [facility] Blood Venous blood specimen / Unknown Venipuncture / Unknown 08/28/2024 7:29 PM EDT 08/28/2024 7:46 PM EDT us Vadim Sauceda MD LAB BLOOD ORDERABLES Final Resu lt Performing Organization Address [facility] de Phone Number [facility] [address] [place] [address], [place] [phone] * Lipase (08/28/2024 7:29 PM EDT) Lipase 44 13 - 75 unit/L LAB CHEMISTRY METHOD 08/28/2024 8:[address] [facility] Blood Venous blood specimen / Unknown Venipuncture / Unknown 08/28/2024 7:29 PM EDT 08/28/2024 7:46 PM EDT us Vadim Sauceda MD LAB BLOOD ORDERABLES Final Resu lt Performing Organization Address City/[facility]/ZIP Co de Phone Number [facility] [address] [place] [address], [place] [phone] * Comprehensive metabolic panel (08/28/2024 7:29 PM EDT) Sodium 141 133 - 145 mmol/L LAB CHEMISTRY METHOD 08/28/2024 8:[address] [facility] Potassium 4.6 3.5 - 5.5 mmol/L LAB CHEMISTRY METHOD 08/28/2024 8:[address] [facility] Chloride 107 96 - 110 mmol/L LAB CHEMISTRY METHOD 08/28/2024 8:[address] [facility] CO2 31 21 - 32 mmol/L LAB CHEMISTRY METHOD 08/28/2024 8:[address] [facility] Anion Gap 3 3 - 11 LAB CHEMISTRY METHOD 08/28/2024 8:[address] [facility] Glucose 85 70 - 100 mg/dL LAB CHEMISTRY METHOD 08/28/2024 8:[address] [facility] BUN 14 5 - 25 mg/dL LAB CHEMISTRY METHOD 08/28/2024 8:[address] [facility] Creatinine 1.14 0.70 - 1.30 mg/dL LAB CHEMISTRY METHOD 08/28/2024 8:[address] [facility] eGFR 78 >=60 mL/min/1. 73m2 LAB CHEMISTRY METHOD 08/28/2024 8:[address] [facility] Comment:Calculation based on the??Chronic Kidney Disease Epidemiology Collaboration (CKD-EPI) equation refit??without adjustment for race. BUN/Creatinine Ratio 12.3 LAB CHEMISTRY METHOD 08/28/2024 8:[address] [facility] Calcium 9.8 8.5 - 10.5 mg/dL LAB CHEMISTRY METHOD 08/28/2024 8:[address] [facility] AST (SGOT) 28 10 - 42 unit/L LAB CHEMISTRY METHOD 08/28/2024 8:[address] [facility] ALT (SGPT) 40 10 - 60 unit/L LAB CHEMISTRY METHOD 08/28/2024 8:[address] [facility] Alkaline Phosphatase 94 42 - 121 unit/L LAB CHEMISTRY METHOD 08/28/2024 8:[address] [facility] Total Protein 7.5 6.0 - 8.0 g/dL LAB CHEMISTRY METHOD 08/28/2024 8:[address] [facility] Albumin 4.1 3.2 - 5.0 g/dL LAB CHEMISTRY METHOD 08/28/2024 8:[address] [facility] Total Bilirubin 0.4 0.0 - 1.4 mg/dL LAB CHEMISTRY METHOD 08/28/2024 8:[address] [facility] Blood Venous blood specimen / Unknown Venipuncture / Unknown 08/28/2024 7:29 PM EDT 08/28/2024 7:46 PM EDT us Vadim Sauceda MD LAB BLOOD ORDERABLES Final Resu lt [facility] [address] [place] [address], from Last 3 Months Insurance [facility] Care Teams Car Designer Relationship Specialty Start Date End Date Delmis Allen MD [address] [place], [place] PCP - General 09/05/16
--- OUTSIDE RECORDS SUMMARY | 2024-09-23 15:18 | XMS_ITS | Clinical Summary ---
Author Organization [employer] Address [address] [place] [address] 7 [place] [address] Care Team Providers Care Manufacturing Manager Name Role Phone Delmis Allen MD Primary Care Provider [phone] Allergies Active Allergy Reactions Criticality Noted Date Comments Acetaminophen Hives Low 07/18/2022 Allergy Gabapentin Rash Low 02/27/2022 Morphine Hives Low 05/23/2021 Other reaction(s): Vomiting Morphine Sulfate Hives Low 04/17/2022 Other 06/30/2022 Other Reaction(s): OTHER Oxycodone Hives 02/27/2021 Allergy Oxycodone-Acetaminophen Unknown Low 05/23/2021 Penicillins Hives 02/27/2021 Shellfish Allergy 03/09/2023 Other reaction(s): Unknown Medications * This document contains information received from the source organization and may not represent a complete record from that organization. Diclofenac Sodium (Voltaren) 1 % gel Apply 2 g topically every 12 (twelve) hours. 01/28/20 19 Active hydrocortisone 2.5 % cream Apply 1 application topically every 12 (twelve) hours. 02/28/20 22 Active cetirizine (ZyrTEC) 10 MG tabletIndicatio ns:Viral upper respiratory tract infection Take 1 tablet (10 mg) by mouth in the morning. 90 tablet 05/14/20 22 Active ketoconazole (Nizoral) 2 % shampooIndicati ons:Seborrheic dermatitis Apply topically 2 (two) times a week. 120 mL 3 11/07/19 23 Active Fluocinolone Acetonide Scalp (Catano-Smoothe/ FS Scalp) 0.01 % oilIndications: Seborrheic dermatitis To apply to the scalp overnight 2 times at night. Cover the scalp w/ a durag and rinse in the morning 118 mL 2 11/07/19 23 Active Neomycin-Polymy mary lou-HC 1 % solutionIndicat ions:Other infective chronic otitis externa of left ear Administer 4 drops into affected ear(s) 4 times daily. 10 mL 04/21/20 23 Active Omeprazole 20 MG tablet delayed-release Indications:Gas troesophageal reflux disease without esophagitis Take 20 mg by mouth 2 times daily. 60 tablet 11 08/14/19 24 Active Fluticasone-Jose meterol (Advair Diskus) 250-50 MCG/ACT aerosol powderIndicatio ns:Moderate persistent asthma without complication Inhale 1 puff 2 times daily. 60 each 08/26/19 25 Active albuterol 108 (90 Base) MCG/ACT inhalerIndicati ons:Moderate persistent asthma without complication Inhale 2 puffs every 6 (six) hours if needed for wheezing. 18 g 08/26/19 25 2025 Active celecoxib (CeleBREX) 100 MG capsuleIndicati ons:Chronic neck pain Take 1 capsule (100 mg) by mouth 2 times daily. 60 capsule 09/04/19 25 2024 Active albuterol 108 (90 Base) MCG/ACT inhalerIndicati ons:Moderate persistent asthma without complication Inhale 2 puffs every 6 (six) hours if needed for wheezing. 18 g 11 03/11/20 23 2024 Discontinued(R eorder (will not trigger notification to Pharmacy)) Fluticasone-Jose meterol (Advair Diskus) 250-50 MCG/ACT aerosol powderIndicatio ns:Moderate persistent asthma without complication Inhale 1 puff 2 times daily. 60 each 11 08/05/19 24 2024 Discontinued(R eorder (will not trigger notification to Pharmacy)) albuterol 108 (90 Base) MCG/ACT inhalerIndicati ons:Moderate persistent asthma without complication Inhale 2 puffs every 6 (six) hours if needed for wheezing. 18 g 11 08/26/19 25 2024 Discontinued(R eorder (will not trigger notification to Pharmacy)) Fluticasone-Jose meterol (Advair Diskus) 250-50 MCG/ACT aerosol powderIndicatio ns:Moderate persistent asthma without complication Inhale 1 puff 2 times daily. 60 each 11 08/26/19 25 2024 Discontinued(R eorder (will not trigger notification to Pharmacy)) cyclobenzaprine (Flexeril) 5 MG tabletIndicatio ns:Chronic neck pain Take 1 tablet (5 mg) by mouth 3 times daily for 10 days. 30 tablet 09/04/19 25 2024 Active Problems Problem Noted Date Diagnosed Date Anxiety disorder, unspecified 09/23/2024 Gastroesophageal reflux disease 04/17/2022 Chronic neck pain 04/17/2022 Multiple perforations of left tympanic membrane 05/23/2021 Hiatal hernia 11/12/2016 Difficulty swallowing solids 11/10/2016 Asthma 10/27/2014 Seborrheic dermatitis 10/27/2014 Resolved Problems Problem Noted Date Diagnosed Date Resolved Date Viral upper respiratory tract infection 04/17/2022 04/17/2022 Assessment & Plan (04/17/2022 4:22 PM EST): Recommended supportive care. Rx ketotifen, antihistamine and decongestant. Sent order for RSV/flu & COVID. Rapid COVID neg. Encounters * This document contains information received from the source organization and may not represent a complete record from that organization. Date Type Department Care Team Description 09/23/2024 Travel 09/03/2024 9:00 AM EDT Office Visit [facility] [address] [place], [place] [phone] Susan Youssef MD Chronic neck pain (Primary Dx); Paresthesias; Status post cervical disc replacement; Anxiety 09/03/2024 Travel 09/01/2024 Telephone [facility] [address] [place] [address] Delmis Allen MD 08/30/2024 Orders Only [facility] [address] [place], [place] [phone] Isabel Harrell MD 08/29/2024 Orders Only [facility] [address] [place], [place] [phone] Isabel Harrell MD 08/25/2024 Telephone [facility] [address] [place] [address] Delmis Allen MD 08/25/2024 Orders Only [facility] [address] [place] [address] Delmis Allen MD Moderate persistent asthma without complication 08/25/2024 Refill [facility] [address] [place] [address] Delmis Allen MD Moderate persistent asthma without complication 08/24/2024 Telephone [facility] [address] [place] [address] Delmis Allen MD Results 08/24/2024 Refill [facility] [address] [place] [address] Delmis Allen MD Moderate persistent asthma without complication from Last 3 Months Immunizations Name Administration Dates Next Due Tdap 05/19/2015 Social History Tobacco Use Types Packs/Day Years Used Date Smoking Tobacco: Never Passive Smoke Exposure: Never Smokeless Tobacco: Never Tobacco Cessation:Counseling Given: Not Answered Alcohol Use Standard Drinks/Week Comments Never 0 [...] the past 12 months, has t he [employer], [employer], oil or water [employer] threatened to shut off services in your home? No 03/02/2023 Depression Answer Date Recorded Patient Health Questionnaire-2 Score 0 07/31/2022 Sex and Gender Information Value Date Recorded Sex Assigned at Male 03/17/2022 10:22 AM EDT Legal Sex Male 10:22 AM EDT Gender Identity Male 03/17/2022 10:22 AM EDT Sexual Orientation Straight 03/17/2022 10 :22 AM EDT Last Filed Vital Signs Vital Sign Reading Time Taken Comments Blood Pressure 130/90 09/03/2024 9:25 AM EDT Pulse 76 09/03/2024 9:25 AM EDT Temperature 36.2 ??C (97.1 ??F) 09/03/2024 9:25 AM ED T Respiratory Rate 16 09/03/2024 9:25 AM EDT Oxygen Saturation 98% 06/02/2024 10:23 AM EST Inhaled Oxygen Concentration - - Weight 74.9 kg (165 lb 3.2 oz) 09/03/2024 9:25 A M EDT Height 160 cm (5' 3 ) 06/02/2024 10:23 AM EST Body Mass Index 29.26 06/02/2024 10:23 AM EST Plan of Treatment Upcoming Encounters Date Type Department Care Team (Late st Contact Info) Description 12/13/2024 9:15 AM EDT Office Visit [facility] [address] [place] [address] Delmis Allen MD [address] [place] [address] Health Maintenance Due Date Last Done Comments CT Colonography 1974 Colonoscopy 1974 Colorectal Cancer Screening 1974 FIT DNA/Cologuard 1974 FIT 1974 FOBT 1974 HIV Screening 1974 Lipid Panel 1974 Sigmoidoscopy 1974 Alcohol/Substance Use Screening 1986 Family Planning (PISQ) 1989 Hepatitis C Screening 1992 Hepatitis B Vaccines (1 of 3 - 19+ 3-dose series) 1993 Pneumococcal Vaccine: 50+ Years (1 of 2 - PCV) 1993 Depression Screening 08/01/2023 07/31/2022, 07/31/2022 SDOH Screening 08/01/2023 07/31/2022 COVID-19 Vaccine (3 - 2023-2 5 season) 2024 12/02/2020, 11/11/2020 Influenza Vaccine (#1) 2024 Zoster Vaccines (1 of 2) 2024 Tobacco Screening 03/01/2025 03/01/2024 DTaP/Tdap/Td Vaccines (2 - T d or Tdap) 05/19/2025 05/19/2015 RSV Patients and Patients Aged 60 years or older (1 - 1-dose 75+ series) 2049 HIB Vaccines Aged Out No longer eligi [...] patient's age to complete this topic Meningococcal Vaccine Aged Out No sera freddie eligible based on patient's age to complete this topic RSV under 20 months Aged Out No longe r eligible based on patient's age to complete this topic Rotavirus Vaccines Aged Out No longer eligible based on patient's age to complete this topic Procedures Procedure Name Priority Date/Time Associated Diagnosis Comments XR CERVICAL SPINE 4V Routine 09/03/2024 Chronic neck pain Paresthesias Status post cervical disc replacement XR CHEST 2 VIEWS Routine 08/28/2024 2:16 PM EDT ECG 12-LEAD Routine 08/28/2024 1:38 PM EDT ECG 12-LEAD Routine 08/28/2024 1:36 PM EDT from Last 3 Months Results * XR CERVICAL SPINE 4V (09/03/2024) Anatomical Region Laterality Modality Abdomen Radiographic Melodie ging Susan Youssef MD IMG XR PROCEDURES Final Resul t * XR Chest 2 Views (08/28/2024 2:16 PM EDT) Anatomical Region Laterality Modality Chest Radiographic Melodie ging Historical Provider MD MATT XR PROCEDURES Final R esult * ECG 12 lead (08/28/2024 1:38 PM EDT) Only the most recent of2 resultswithin the time period is included. Historical Provider ECG ORDERABLES Final Res ult from Last 3 Months Insurance [facility] Care Teams Manufacturing Manager Relationship Specialty Start Date End Date Delmis Allen MD [address] [place] [id number] PCP - General Internal Medicine 03/14/21
--- OUTSIDE RECORDS SUMMARY | 2024-09-23 15:18 | XMS_ITS | Clinical Summary ---
Author Organization [facility] Address [address] [place] [address] Care Team Providers Care Heel Wheeler Name Role Phone Delmis Allen Primary Care Provider [phone]- [phone] Allergies Active Allergy Reactions Criticality Noted Date [...] Administration Dates Next Due Covid-19, Pfizer, mRNA, [place] valent, PF 30 mcg/0.3 mL dose (for [...] 12/15/2023 6:34 AM EDT Plan of Treatment Health Maintenance Due Date Last Done Comments Cologuard 1974 Colon Cancer Screening 1974 Colonoscopy 1974 FOBT / Fit Test 1974 HIV Screening 1974 Hepatitis C Screening 1974 Sigmoidoscopy 1974 Hepatitis B Vaccines (1 of 3 - 19+ 3-dose series) 1993 Pneumococcal Vaccine: 50+ Ye ars (1 of 2 - PCV) 1993 COVID-19 Vaccine (3 - season) 2024, 11/11/2020 Zoster Vaccines (1 of 2) 2024 Alcohol/Substance Use Screening 05/18/2024 Depression Screening and Follow-Up 05/18/2024 Social Drivers of Health Annual Screening 05/18/2024 Influenza Vaccine (Season Ended) 2025 DTaP,Tdap,and Td Vaccines (2 - Td or Tdap) 05/19/2025 05/19/2015 RSV Vaccine (60+ years old a nd patients) (1 - 1-dose 75+ series) 2049 Insurance [facility] Advance Directives * Presumed Full Code (Latest Code Status on File) Date Activated Date Inactivated Comments 12/15/2023 7:01 AM 12/15/2023 4:30 PM Care Teams Heel Wheeler Relationship Specialty Start Date End Date Delmis Allen [address] [place] [address] PCP - General Internal Medicine 05/03/21
--- OUTSIDE RECORDS SUMMARY | 2024-09-23 15:18 | XMS_ITS | Encounter Summary ---
Author Organization [employer] Address [address] [address] Care Team Providers Care Segment Assembler Name Role Phone Delmis Allen MD Primary Care Provider [phone] Reason for Visit * Reason Onset Date Comments Nurse Triage 04/14/2023 Encounter Details Date Type Department Care Team ([facility] st Contact Info) Description 04/14/2023 Telephone [facility] [address] [place] [address] Delmis Allen MD [address] [place] [address] Nurse Triage Social History Tobacco Use Types Packs/Day Years [...] encounter Miscellaneous Notes * Telephone Encounter - Tanya Dewey RN - 04/14/2023 3:37 PM EST Called pt. He states that he has been having a lot of nerve and muscle aches due to pinched nerve in neck. Pt. Went to [facility] ED 04/13/23. Pt was told to get a referral to a Neurosurgeon and also an ENTreferral for left ruptured ear drum. Pt. States that the ENT provider is not in pt. Network that hewas referred to. I advised pt. To call insurance and find out who takes his insurance in area. Pt. Wants to see PCP no availability until 04/24/23 and pt. Wants late appt in day. I advised pt. That I will look at schedule each day for an opening and also can probably get pt. In sooner when [facility] schedule opens for PCP on 04/20 and 04/21/23. Will keep call in box and check schedule for openings with PCP. Otherwise appt. Scheduled for 04/24/23 at 4pm. Protocol Used: Neck Pain or Stiffness (Adult) Protocol-Based Disposition: See in Office or Video Visit Today Video visit offer not recorded Positive Triage Questions: * Numbness in an arm or hand (i.e., loss of sensation) * Neck pain is a chronic symptom (recurrent or ongoing AND lasting > 4 weeks) * All higher-acuity triage questions were negative Care Advice Discussed: * Reassurance and Education - Neck Pain or Stiffness * Sleep * Activity * Stretching Exercises * Use Heat After 48 Hours for Pain * Pain Medicines * Preventing Neck Pain - Use Good Body Mechanics Called pt. Back on 04/17/23 to offer sooner appt. With PCP for 04/21/23- Pt. Declines because he cannot come into office appt. In am. I told pt. I would look again on 04/21/23 to see if [facility] scheduleis open for 04/22/23. Pt. States understanding. * Telephone Encounter - Tawny Concepcion - 04/14/2023 3:29 PM EST Tc from pt returning call and requesting a call back. * Telephone Encounter - Misty Lau RN - 04/14/2023 2:43 PM EST Triage call attempted x2. Pt didn't answer. Left voice message to call [facility] triage line at [phone]. * Telephone Encounter - Tawny Concepcion - 04/14/2023 1:59 PM EST Tc from pt calling to report ED visit on 04/13/2023 at [facility]. Seen for back, ear and neck pain. Patient advised will forward to team nurse for follow up. Symptoms: Back Pain - Not From Injury, Neck Pain - Not From Injury, Earache Outcome: Schedule a same-day appointment or talk to a nurse or provider today Reason: Pt still with back pain and pt is requesting referrals. The caller accepted this outcome documented in this encounter Plan of Treatment Upcoming Encounters Date Type Department Care Team ([facility] st Contact Info) Description 12/13/2024 9:15 AM EDT Office Visit [facility] [address] [place] [address] Delmis Allen MD [address] [place], [place] [phone] documented as of this encounter Visit Diagnoses Not on filedocumented in this encounter Additional Health Concerns Assessment Noted Time PHQ-9 Depression Total Score: 0 08/01/19 23 4:23 PM EDT documented as of this encounter Care Teams Segment Assembler Relationship Specialty Start Date End Date Delmis Allen MD [address] [place] [id number] PCP - General Internal Medicine 03/14/21 documented as of this encounter
--- OUTSIDE RECORDS SUMMARY | 2024-09-23 15:18 | XMS_ITS | Encounter Summary ---
Author Organization [employer] Address [address] [facility] [address] [place] [address] Care Team Providers Care Metal Bonding Helper Name Role Phone Delmis Allen MD Primary Care Provider [phone] Encounter Details Date Type Department Care Team (Latest Contact Info) Description 09/23/2024 Travel Social History Tobacco Use Types Packs/Day Years [...] Description 12/13/2024 9:15 AM EDT Office Visit [facility] [address] [place] [address] Delmis Allen MD [address] [place] [address] documented as of this encounter Visit Diagnoses Not on filedocumented in this encounter Additional Health Concerns Assessment Noted Time PHQ-9 Depression Total Score: 0 08/01/19 23 4:23 PM EDT documented as of this encounter Care Teams Metal Bonding Helper Relationship Specialty Start Date End Date Delmis Allen MD [address] [place] [address] PCP - General Internal Medicine 03/14/21 documented as of this encounter
--- OUTSIDE RECORDS SUMMARY | 2024-09-23 15:18 | XMS_ITS | Patient Health Record ---
Author Organization [facility] Address [address] [place] [address] Care Team Providers Care Professor Of Environmental Engineering Name Role Phone Delmis Allen M.D. Primary Care Provider Un available Tab Marie Jr Unavailable [phone] Allergies Allergen (clinical drug ingredient) Drug/Non Drug Allergy documented on EMR Reaction Allergy Type Onset Date Status acetaminophen / oxycodone Percocet Unknown Drug Allergy Active seafood (uncoded) Unknown Allergy Ac tive Reason For Referral No Information Medications Medication SIG (Take, Route, Frequency, Duration) Notes Start Date End Date Status Advair Diskus 250-50 MCG/ACT Inhalation for 60 Active Pantoprazole Sodium 40 MG 1 tablet Orall y Once a day for 30 day(s) 01/12/2023 Active Albuterol Sulfate HFA 108 (90 Base) MCG/ACT 1 puff as needed Inhalation every 4 hrs Active Immunizations Vaccine Route Administration Date Status Comme nts Influenza Unknown 06/30/2022 Refused Social History Tobacco Use: Social History Observation Description Date Details (start date - stop date) Never Smoker NA - NA Tobacco Use/Smoking Question Answer Notes Patient is a nonsmoker Alcohol Screen Question Answer Notes Did you have a drink containing alcohol in the p ast year? No Points 0 Interpretation Negative Problems Problem Type SNOMED Code ICD Code Onset Dates Problem Status W/U Status Risk Notes Problem 499922857 Colon cancer screening (Z12.11) Active confirmed Problem Gastroesophageal reflux disease (638216826) Gastroesophageal reflux disease (K21.9) Active confirmed Problem 004343519 Gastroesophageal reflux disease, unspecified whether esophagitis present (K21.9) Active confirmed Problem 39112366 Gastric intestin al metaplasia (K31.A0) Active confirmed Plan Of Treatment Future Test Test Name Order Date UPPER GI ENDOSCOPY 06/30/2022 COLONOSCOPY 06/30/2022 UPPER GI ENDOSCOPY 01/12/2023 Insurance Providers Payer Name Payer Address Payer Phone Subscriber Number Group Number Insured Name Patient Relationship to Insured Coverage Start Date Coverage End Date [place] [id number] [id number] DENISE MILLER Self - patient is the insured Medical (General) History Medical History History ICD Code asthma Arthritis Disc disease Lasix surgery Left otitis externa Psoriasis Colonoscopy 08/07, normal, ten-year follo wup Gastroesophageal reflux dise ase, EGD 08/07, gastric intestinal metaplasia, and no H. pylori or BE Surgical History Surgery Date(Month/Year) Cholecystectomy 2007 Discectomy 12/15/2022
--- OUTSIDE RECORDS SUMMARY | 2024-09-23 15:18 | XMS_ITS | Encounter Summary ---
Author Organization [employer] Address [address] [facility] 7 [place] [address] Care Team Providers Care Nuclear Fuels Reclamation Engineer Name Role Phone Delmis Allen MD Primary Care Provider [phone] Encounter Details Date Type Department Care Team ([facility] st Contact Info) Description 08/29/2024 Orders Only [facility] [address] [place], [place] [id number] Provider, MD Isabel Social History Tobacco Use [...] Description 12/13/2024 9:15 AM EDT Office Visit [facility] [address] [place] [address] Delmis Allen MD [address] [place] [address] documented as of this encounter Procedures Procedure Name Priority Date/Time Associated Diagnosis Comments XR CHEST 2 VIEWS Routine 08/28/2024 2:16 PM EDT documented in this encounter Results * XR Chest 2 Views (08/28/2024 2:16 PM EDT) Anatomical Region Laterality Modality Chest Radiographic Melodie ging us Historical Provider IMChristopher XR PROCEDURES Final R esult documented in this encounter Visit Diagnoses Not on filedocumented in this encounter Additional Health Concerns Assessment Noted Time PHQ-9 Depression Total Score: 0 08/01/19 23 4:23 PM EDT documented as of this encounter Care Teams Nuclear Fuels Reclamation Engineer Relationship Specialty Start Date End Date Delmis Allen MD [address] [place] [address] PCP - General Internal Medicine 03/14/21 documented as of this encounter
--- OUTSIDE RECORDS SUMMARY | 2024-09-23 15:18 | XMS_ITS | Encounter Summary ---
Author Organization [employer] Address [address] [place] [address] Care Team Providers Care Flight Operations Inspector Name Role Phone Delmis Allen MD Primary Care Provider [phone] Reason for Visit * Reason Onset Date Comments Referral 06/29/2023 Encounter Details Date Type Department Care Team ([facility] st Contact Info) Description 06/29/[address] [facility] [address] [place] [address] Delmis Allen MD [address] [place] [address] Referral Social History Tobacco Use Types Packs/Day Years [...] encounter Miscellaneous Notes * Telephone Encounter - Naima Etienne - 06/29/2023 10:51 AM EST TC from pt requesting a renewal of Referral Date of original referral : 11/06/22 Location: [address] [place] [address] Date: n/a Time: n/a Specialty: neurosurgeon DX: Chronic neck pain Pt states called to book an appt and was inform a new referral was needed . documented in this encounter Plan of Treatment Upcoming Encounters Date Type Department Care Team (Late st Contact Info) Description 12/13/2024 9:15 AM EDT Office Visit [facility] [address] [place] [address] Delmis Allen MD [address] [place] [address] documented as of this encounter Visit Diagnoses Not on filedocumented in this encounter Additional Health Concerns Assessment Noted Time PHQ-9 Depression Total Score: 0 08/01/19 23 4:23 PM EDT documented as of this encounter Care Teams Flight Operations Inspector Relationship Specialty Start Date End Date Delmis Allen MD [address] [place] [address] PCP - General Internal Medicine 03/14/21 documented as of this encounter
[2024-09-23 15:30] VITALS: BP 126/81; PULSE 60; O2SAT 98; BMI 29.7
== END 2024-09-23 16:02 | disposition home or self-care (01) ==
LOC: HO.PMC 15:16
PROVIDERS: Referring Provider Pediatrics; Visit Provider Registered Nurse Emergency
DX: M96.1 Postlaminectomy syndrome, not elsewhere classified (principal); M43.02 Spondylolysis, cervical region; M54.2 Cervicalgia
CPT/HCPCS: 99204; G2211

== ENCOUNTER → 2024-09-23 15:15 | Outpatient (BNVA) | payer OTHER, SELFPAY | PROVIDERS: Referring Provider Pediatrics; Visit Provider Registered Nurse Emergency | DX: M43.02 Spondylolysis, cervical region (principal); M96.1 Postlaminectomy syndrome, not elsewhere classified; M54.2 Cervicalgia | CPT/HCPCS: 99202 ==